=== PATIENT | female | born 2000 | race Caucasian/White ===

== ENCOUNTER 2020-06-19 18:18 | Inpatient (IN) | payer OTHER, MEDICAID, SELFPAY ==
[2020-06-19 18:23] VITALS: BP 129/85; PULSE 102; RESP 18; TEMP 36.7; O2SAT 96; BMI 42.0
[2020-06-19 19:42] LABS: MANUAL DIFF FLAG NO
[2020-06-19 19:43] LABS: Basophils Percent Auto 0.2 % (0-2); Eosinophils Absolute Auto 0.1 X10*3/uL (0.0-0.4); Eosinophils Percent Auto 0.9 % (0-4); Hematocrit 37.7 % (37-47); Hemoglobin 12.4 g/dl (12.0-16.0); Imm Gran Abs Auto 0.04 X10*3/uL (0.00-0.03); Imm Gran Pct Auto 0.3 % (0.0-0.4); Lymphocytes Absolute Auto 2.7 X10*3/uL (1.2-4.9); Lymphocytes Percent Auto 22.5 % (20-40); Mean Corpuscular HGB Conc 32.9 g/dl (31.0-35.0); Mean Corpuscular Hemoglobin 28.1 pg (27.0-33.0); Mean Corpuscular Volume 85.5 fL (80-98); Mean Platelet Volume 10.2 fL (9.4-12.3); Monocytes Absolute Auto 0.8 X10*3/uL (0.1-1.2); Monocytes Percent Auto 6.5 % (2-11); Neutrophils Absolute Auto 8.2 X10*3/uL (2.0-8.3); Neutrophils Percent Auto 69.6 % (45-73); Platelet Count 226 X10*3/uL (160-400); Red Blood Count 4.41 X10*6/uL (4.20-5.50); Red Cell Distribution Width 13.3 % (11.0-16.0); White Blood Count 11.8 X10*3/uL (4.8-10.8)
[2020-06-19 19:58] LABS: COVID-19 Test Negative (Negative)
[2020-06-19 20:06] LABS: Glucose Urine UA NEG (NEG); Leukocyte Esterase Urine 2+ (NEG); Nitrite Urine NEG (NEG); Specific Gravity - Urine 1.025 (1.005-1.025); UACC Culture Trigger YES; Urine Blood NEG (NEG); Urine Ketones NEG (NEG); Urine Protein NEG (NEG-TRACE)
[2020-06-19 20:08] LABS: Appearance Urine HAZY; Color Urine YELLOW; UPreg QC Valid YES; Urine Pregnancy NEGATIVE (NEGATIVE)
[2020-06-19 20:13] LABS: Ethanol < 10 mg/dL
[2020-06-19 20:15] LABS: Bacteria Urine 1+ /LPF; RBC Urine 0 /HPF (0); Squamous Epithelial Cell Urine 1+ /LPF; UACC CULT YES; WBC Urine 30-49 /HPF (0-4)
[2020-06-19 20:17] LABS: Alanine Aminotransferase 19 U/L (0-31); Albumin Level 4.2 g/dL (3.5-5.0); Alkaline Phosphatase 107 U/L (39-117); Anion Gap 15 (12-20); Aspartate Amino Transferase 10 U/L (5-31); Bilirubin Total 0.6 mg/dL (0.0-1.0); Blood Urea Nitrogen 8 mg/dL (9-16); Calcium 8.9 mg/dL (8.4-10.2); Carbon Dioxide 20 mmol/L (22-29); Chloride 111 mmol/L (96-108); Creatinine Clr Calc Pharmacy 144.9; Estimated Glomerular Filt Rate > 60; Glucose Random 119 mg/dL (60-115); Potassium 3.9 mmol/L (3.3-5.1); Sodium 142 mmol/L (135-145); Total Protein 6.8 g/dL (6.5-8.0)
[2020-06-19 20:26] LABS: Amphetamine Screen Urine Not Detected (Not Detect); Barbiturates, Urine Not Detected (Not Detect); Benzodiazepines Screen Urine Not Detected (Not Detect); Cannabinoid Screen Urine Not Detected (Not Detect); Cocaine Screen Urine Not Detected (Not Detect); Opiate Screen Urine Not Detected (Not Detect); Phencyclidine Screen Urine Not Detected (Not Detect)
--- NOTE | 2020-06-19 20:50 | ED.PSYCH ---
HPI - Psych General Chief Complaint: Psychiatric Symptoms Stated Complaint: Crisis Time Seen by Provider: 06/19/20 19:25 Source: family Limitations: no limitations History of Present Illness HPI Narrative: 19-year-old female who presents ambulatory with her mother she is part of the service not program lives in [facility] home she has a history of RADHA, mixed bipolar and reported some intellectual disability she has been reporting today feeling thoughts of SI and HI she was visiting with the mother and reported these symptoms prior to returning to the detention and mother brought her here. Additionally also reports slight burning like sensation with urination history of UTI. No abdominal pain, nausea, vomiting or diarrhea. Not sexually active. No fever. No vaginal discharge or bleeding. Patient reports she has been in this detention for 5 months or so and she does not like anyone there. MD complaint: suicidal ideation Onset (ago): day(s) Duration: constant History of same: Yes Relieving factors: none Exacerbating factors: none Associated symptoms: denies other symptoms Treatments prior to arrival: none Related Data Allergies Allergy/AdvReac Type Severity Reaction Status Date / Time shellfish derived AdvReac Hives Verified 06/19/20 19:12 Review of Systems Review of Systems: Constitutional: No Weight loss, No Fever, No Chills, No Night Sweats, No Fatigue, No Malaise ENT/Mouth: No Hearing loss, No Ear Pain, No Nasal Congestion, No Sinus Pain, No Hoarseness, No sore throat, No Rhinorrhea, No Swallowing Difficulty Eyes: No Eye Pain, No Swelling, No Redness, No Foreign Body, No Discharge, No Vision Changes Cardiovascular: No Chest Pain, No SOB, No Dyspnea on Exertion, No Orthopnea, No Edema, No Palpitations Respiratory: No Cough, No Sputum, No Wheezing, No Smoke Exposure, No Dyspnea Gastrointestinal: No Nausea, No Vomiting, No Diarrhea, No Constipation, No abdominal Pain, No Hematochezia, No Melena Genitourinary: no irregular bleeding, + Dysuria, No Urinary Frequency, No Hematuria, No Urinary Incontinence, No Urgency, No Flank Pain, No Urinary Flow Changes, No Hesitancy Musculoskeletal: No joint pain, No Myalgias, No Joint Swelling Skin: No Skin Lesions, No rash Neuro: No Weakness, No Numbness, No Paresthesias, No Loss of Consciousness, No Dizziness, No Headache Psych: As noted per HPI Heme/Lymph: No Bruising, No Bleeding,No Lymphadenopathy Endocrine: No Polyuria, No Polydipsia, No Temperature Intolerance Yes all other systems are reviewed and are negative [facility] Past Medical History Medical History Intellectual disability Mixed bipolar disorder Social History Social History Advance Directives: No Advance Directives Information Provided: Yes Physical Exam Vital Signs: Vital Signs: Last Vital Signs Temp 98.0 F 06/19/20 18:23 Pulse 102 H 06/19/20 18:23 Resp 18 06/19/20 18:23 BP 129/85 06/19/20 18:23 Pulse Ox 96 06/19/20 18:23 Body Mass Index 42.0 Reviewed Const: General: cooperative and anxious; No acute distress or intoxicated appearing Nutritional Appearance: average body habitus Orientation/consciousness: patient oriented x3 HENMT: Head: Yes normal to inspection Ears: hearing grossly normal bilaterally Eyes: General: appearance normal, both eyes and all related structures Visual [place]: normal visual mancilla by confrontation Neck: Neck: Yes normal visual inspection, No positive Brudzinski's sign, No positive Kernig's sign and No tender Thyroid: Thyroid normal Chest: Chest palpation & inspection: normal inspection of the chest Resp: Effort & Inspection: normal respiratory effort Auscultation: clear to auscultation bilaterally Cardio: Jugular venous distension: no JVD Rhythm: regular rhythm Heart sounds: S1 normal heart sound present and S2 normal heart sound present GI: Inspection: Yes normal to inspection Percussion: Yes normal to percussion Auscultation: normal bowel sounds : General: Yes no CVA tenderness Back/Spine/Pelvis: Back: no CVA tenderness Skin: General skin exam: no rashes or lesions noted Neuro: General: patient oriented x3 Extrem: General: Yes normal to inspection Course Reevaluation(s) Reevaluation #1: 1956 Per mom similar presentation in the past has been to [facility] as well as [facility] and [facility]. Given her slight dysuria will go ahead and check urine, basic labs and obtain psychiatric evaluation. Patient is familiar with service that and crisis team. Reevaluation #2: 2104 Urine with 2+ leukocyte esterase , urine WBC 30-49, 1+ squamous, 1+ bacteria. Will culture urine and start patient on Macrobid 100 mg b.i.d.. She is medically clear at this time for psychiatric evaluation. Patient placed on physician observation pending psychiatric evaluation and input/disposition. Consultations Consultation #1: Care team Consultation #2: Crisis evaluation MDM - Psych Lab Data Result diagrams: 06/19/20 19:34 06/19/20 19:34 Labs: Lab Results 06/19/20 06/19/20 06/19/20 Range/Units 19:26 19:34 19:34 WBC 11.8 H (4.8-10.8) X10*3/uL RBC 4.41 (4.20-5.50) X10*6/uL Hgb 12.4 (12.0-16.0) g/dl Hct 37.7 (37-47) % MCV 85.5 (80-98) fL MCH 28.1 (27.0-33.0) pg MCHC 32.9 (31.0-35.0) g/dl RDW 13.3 (11.0-16.0) % Plt Count 226 (160-400) X10*3/uL MPV 10.2 (9.4-12.3) fL Immature Gran % (Auto) 0.3 (0.0-0.4) % Neut % (Auto) 69.6 (45-73) % Lymph % (Auto) 22.5 (20-40) % [place] % (Auto) 6.5 (2-11) % Eos % (Auto) 0.9 (0-4) % Baso % (Auto) 0.2 (0-2) % Lymph # (Auto) 2.7 (1.2-4.9) X10*3/uL [place] # (Auto) 0.8 (0.1-1.2) X10*3/uL Eos # (Auto) 0.1 (0.0-0.4) X10*3/uL Baso # (Auto) 0.0 (0.0-0.2) X10*3/uL Abs Immat Gran (auto) 0.04 H (0.00-0.03) X10*3/uL Absolute Neuts (auto) 8.2 (2.0-8.3) X10*3/uL Absolute Nucleated RBC 0.000 (0.0-0.012) X10*3/uL Nucleated RBC % (auto) 0.0 (0.0-0.2) /100WBC Sodium 142 (135-145) mmol/L Potassium 3.9 (3.3-5.1) mmol/L Chloride 111 H (96-108) mmol/L Carbon Dioxide 20 L (22-29) mmol/L Anion Gap 15 (12-20) BUN 8 L (9-16) mg/dL Creatinine 0.83 (0.5-1.4) mg/dL Estim Creat Clear Calc 144.9 Estimated GFR > 60 Random Glucose 119 H (60-115) mg/dL Calcium 8.9 (8.4-10.2) mg/dL Total Bilirubin 0.6 (0.0-1.0) mg/dL AST 10 (5-31) U/L ALT 19 (0-31) U/L Alkaline Phosphatase 107 (39-117) U/L Total Protein 6.8 (6.5-8.0) g/dL Albumin 4.2 (3.5-5.0) g/dL Urine Color Urine Appearance Urine pH (5.0-8.0) Ur Specific [place] (1.005-1.025) Urine Protein (NEG-TRACE) MG/DL Urine Glucose (UA) (NEG) MG/DL Urine Ketones (NEG) MG/DL Urine Blood (NEG) Urine Nitrite (NEG) Ur Leukocyte Esterase (NEG) Urine RBC (0) /HPF Urine WBC (0-4) /HPF Ur Squamous Epith Cells /LPF Urine Bacteria /LPF Urine Test (NEGATIVE) Urine Opiates Screen (Not Detect) Ur Barbiturates Screen (Not Detect) Ur Phencyclidine Scrn (Not Detect) Ur Amphetamines Screen (Not Detect) U Benzodiazepines Scrn (Not Detect) Urine Cocaine Screen (Not Detect) U Marijuana (THC) Screen (Not Detect) Ethyl Alcohol mg/dL COVID-19 (FRANCY) Negative (Negative) COVID-19 Clin Com See Note 06/19/20 06/19/20 06/19/20 Range/Units 19:34 19:49 19:49 WBC (4.8-10.8) X10*3/uL RBC (4.20-5.50) X10*6/uL Hgb (12.0-16.0) g/dl Hct (37-47) % MCV (80-98) fL MCH (27.0-33.0) pg MCHC (31.0-35.0) g/dl RDW (11.0-16.0) % Plt Count (160-400) X10*3/uL MPV (9.4-12.3) fL Immature Gran % (Auto) (0.0-0.4) % Neut % (Auto) (45-73) % Lymph % (Auto) (20-40) % [place] % (Auto) (2-11) % Eos % (Auto) (0-4) % Baso % (Auto) (0-2) % Lymph # (Auto) (1.2-4.9) X10*3/uL [place] # (Auto) (0.1-1.2) X10*3/uL Eos # (Auto) (0.0-0.4) X10*3/uL Baso # (Auto) (0.0-0.2) X10*3/uL Abs Immat Gran (auto) (0.00-0.03) X10*3/uL Absolute Neuts (auto) (2.0-8.3) X10*3/uL Absolute Nucleated RBC (0.0-0.012) X10*3/uL Nucleated RBC % (auto) (0.0-0.2) /100WBC Sodium (135-145) mmol/L Potassium (3.3-5.1) mmol/L Chloride (96-108) mmol/L Carbon Dioxide (22-29) mmol/L Anion Gap (12-20) BUN (9-16) mg/dL Creatinine (0.5-1.4) mg/dL Estim Creat Clear Calc Estimated GFR Random Glucose (60-115) mg/dL Calcium (8.4-10.2) mg/dL Total Bilirubin (0.0-1.0) mg/dL AST (5-31) U/L ALT (0-31) U/L Alkaline Phosphatase (39-117) U/L Total Protein (6.5-8.0) g/dL Albumin (3.5-5.0) g/dL Urine Color YELLOW Urine Appearance HAZY Urine pH 6.0 (5.0-8.0) Ur Specific [place] 1.025 (1.005-1.025) Urine Protein NEG (NEG-TRACE) MG/DL Urine Glucose (UA) NEG (NEG) MG/DL Urine Ketones NEG (NEG) MG/DL Urine Blood NEG (NEG) Urine Nitrite NEG (NEG) Ur Leukocyte Esterase 2+ H (NEG) Urine RBC 0 (0) /HPF Urine WBC 30-49 H (0-4) /HPF Ur Squamous Epith Cells 1+ /LPF Urine Bacteria 1+ /LPF Urine Test NEGATIVE (NEGATIVE) Urine Opiates Screen (Not Detect) Ur Barbiturates Screen (Not Detect) Ur Phencyclidine Scrn (Not Detect) Ur Amphetamines Screen (Not Detect) U Benzodiazepines Scrn (Not Detect) Urine Cocaine Screen (Not Detect) U Marijuana (THC) Screen (Not Detect) Ethyl Alcohol < 10 mg/dL COVID-19 (FRANCY) (Negative) COVID-19 Clin Com 06/19/20 Range/Units 19:49 WBC (4.8-10.8) X10*3/uL RBC (4.20-5.50) X10*6/uL Hgb (12.0-16.0) g/dl Hct (37-47) % MCV (80-98) fL MCH (27.0-33.0) pg MCHC (31.0-35.0) g/dl RDW (11.0-16.0) % Plt Count (160-400) X10*3/uL MPV (9.4-12.3) fL Immature Gran % (Auto) (0.0-0.4) % Neut % (Auto) (45-73) % Lymph % (Auto) (20-40) % [place] % (Auto) (2-11) % Eos % (Auto) (0-4) % Baso % (Auto) (0-2) % Lymph # (Auto) (1.2-4.9) X10*3/uL [place] # (Auto) (0.1-1.2) X10*3/uL Eos # (Auto) (0.0-0.4) X10*3/uL Baso # (Auto) (0.0-0.2) X10*3/uL Abs Immat Gran (auto) (0.00-0.03) X10*3/uL Absolute Neuts (auto) (2.0-8.3) X10*3/uL Absolute Nucleated RBC (0.0-0.012) X10*3/uL Nucleated RBC % (auto) (0.0-0.2) /100WBC Sodium (135-145) mmol/L Potassium (3.3-5.1) mmol/L Chloride (96-108) mmol/L Carbon Dioxide (22-29) mmol/L Anion Gap (12-20) BUN (9-16) mg/dL Creatinine (0.5-1.4) mg/dL Estim Creat Clear Calc Estimated GFR Random Glucose (60-115) mg/dL Calcium (8.4-10.2) mg/dL Total Bilirubin (0.0-1.0) mg/dL AST (5-31) U/L ALT (0-31) U/L Alkaline Phosphatase (39-117) U/L Total Protein (6.5-8.0) g/dL Albumin (3.5-5.0) g/dL Urine Color Urine Appearance Urine pH (5.0-8.0) Ur Specific [place] (1.005-1.025) Urine Protein (NEG-TRACE) MG/DL Urine Glucose (UA) (NEG) MG/DL Urine Ketones (NEG) MG/DL Urine Blood (NEG) Urine Nitrite (NEG) Ur Leukocyte Esterase (NEG) Urine RBC (0) /HPF Urine WBC (0-4) /HPF Ur Squamous Epith Cells /LPF Urine Bacteria /LPF Urine Test (NEGATIVE) Urine Opiates Screen Not Detected (Not Detect) Ur Barbiturates Screen Not Detected (Not Detect) Ur Phencyclidine Scrn Not Detected (Not Detect) Ur Amphetamines Screen Not Detected (Not Detect) U Benzodiazepines Scrn Not Detected (Not Detect) Urine Cocaine Screen Not Detected (Not Detect) U Marijuana (THC) Screen Not Detected (Not Detect) Ethyl Alcohol mg/dL COVID-19 (FRANCY) (Negative) COVID-19 Clin Com Discharge Plan Discharge Clinical Impression: Suicidal ideation, UTI (urinary tract infection)
--- NOTE | 2020-06-19 21:01 | PC.NURSE ---
[facility] faxed/called/spoke with Khalif, confirmed receipt of referral. [facility] notified us that patient's mother already called them earlier about the situation. Per [facility] no clinician available for [facility] patient will be seen in the morning. Received call ([phone])from [facility] direction service net reported that patient was referred to them in late April and patient has been doing fine since. Patient has medication review meeting end of June. Patient behavior started changing when patient started Saturday visit with her mother. Awaiting medication list from the program. Per provider patient has UTI will start her antibiotic waiting for the order. Patient is in her calm and quiet, no distress reported, will continue to monitor.
[2020-06-19] MEDS: Nitrofurantoin Monohyd/M-Cryst 100 MG CAPSULE PO (21:15)
[2020-06-20 01:00] VITALS: BP 135/85; PULSE 92; RESP 16; TEMP 36.6; O2SAT 100
[2020-06-20] MEDS: Omeprazole 20 MG CAPSULE.DR PO ×2 (06:37→16:25)
--- NOTE | 2020-06-20 06:55 | PC.NURSE ---
Report recieved. PT currently with [facility], in no apparent distress.
[2020-06-20 09:28] VITALS: BP 111/77; PULSE 88; RESP 14; TEMP 36.4; O2SAT 98
[2020-06-20 09:45] VITALS: BP 111/77; PULSE 88
[2020-06-20] MEDS: LORazepam 0.5 MG TABLET PO ×3 (09:45→20:48)
[2020-06-20] MEDS: Benztropine Mesylate 1 MG TABLET PO ×2 (09:45→20:47)
[2020-06-20] MEDS: hydrOXYzine HCL 50 MG TABLET PO ×2 (09:45→20:46)
[2020-06-20] MEDS: Propranolol HCL 20 MG TABLET PO ×2 (09:45→20:49)
[2020-06-20] MEDS: Nitrofurantoin Monohyd/M-Cryst 100 MG CAPSULE PO ×2 (09:45→20:49)
[2020-06-20] MEDS: lamoTRIgine 100 MG TABLET PO (09:45)
[2020-06-20] MEDS: medroxyPROGESTERone Acetate 5 MG TABLET 10 MG PO (09:46)
[2020-06-20 16:10] VITALS: BP 103/66; PULSE 108; RESP 16; TEMP 37; O2SAT 97
[2020-06-20] MEDS: Lurasidone HCl 80 MG TABLET PO (16:25)
--- NOTE | 2020-06-20 19:08 | PC.NURSE ---
Report received. PT is resting in bed. Calm and cooperative. PT is inpatient bed search.
[2020-06-20 20:49] VITALS: BP 130/81; PULSE 99
[2020-06-20] MEDS: traZODone HCL 50 MG TABLET PO (20:54)
[2020-06-21] VITALS (7 sets, daily range): BP systolic 105–127; BP diastolic 56–66; PULSE 69–86; RESP 16–18; TEMP 35.6–36.6; O2SAT 97–99
[2020-06-21] MEDS: Omeprazole 20 MG CAPSULE.DR PO ×2 (06:37→17:54)
--- NOTE | 2020-06-21 07:08 | PC.NURSE ---
Report received. PT currently eating breakfast, reporting some anxiety. PT pleasant in conversation. PT is inpatient bedsearch.
[2020-06-21] MEDS: Propranolol HCL 20 MG TABLET PO ×2 (09:44→20:39)
[2020-06-21] MEDS: Benztropine Mesylate 1 MG TABLET PO ×2 (09:44→20:38)
[2020-06-21] MEDS: lamoTRIgine 100 MG TABLET PO (09:44)
[2020-06-21] MEDS: Nitrofurantoin Monohyd/M-Cryst 100 MG CAPSULE PO ×2 (09:44→20:39)
[2020-06-21] MEDS: medroxyPROGESTERone Acetate 5 MG TABLET 10 MG PO (09:44)
[2020-06-21] MEDS: LORazepam 0.5 MG TABLET PO ×3 (09:44→20:39)
[2020-06-21] MEDS: hydrOXYzine HCL 50 MG TABLET PO (09:44)
--- NOTE | 2020-06-21 13:30 | MHC.CARE ---
Auth from Nat Flores for 5 days with auth number #[id number].
[2020-06-21] MEDS: Lurasidone HCl 80 MG TABLET PO (17:54)
[2020-06-21] MEDS: traZODone HCL 50 MG TABLET PO (20:40)
--- NOTE | 2020-06-22 00:33 | PC.ADMIT ---
Patient is a 19 year old single Upper Sorbian speaking female admitted as a CV admission to and placed on 5 minute safety checks. Patient was medically cleared in the [facility], evaluated by [facility] and deemed in need of ILOC secondary to recent agitation along with SI with a plan to tie a string around her neck or jump out of a car. She had also expressed HI towards the other residents at her residential [facility]. Patient arrived on at 1524. During the admission process patient did admit that she has AH of voices that tell her to hurt herself and that she has a hard time with her temper and becomes angered easily. She mentioned I'm Developmentally Delayed and I have trouble keeping my behavior under control . Patient did say she really wouldn't hurt anyone . The patient admitted she was homesick and enjoyed living with her parents. She was able to answer all of the questions appropriately and denied any current SI. At one point in the conversation, the patient mentioned the deaths of her grandparents and a pet Guinea pig in the last two years as stressful. She then looked at the wall with her eyes looking downward and said my pet Guinea pig is right over there. This functional tester typewriters asked if the one she saw was a current pet Guinea pig and she replied No, he's . Apparently the Guinea pig's name was 'Beau' and she said his presence is comforting to her. She said Sometimes when I am resting he will run up my leg and cuddle with me . Patient has had two previous psychiatric admissions at [facility]. A number of years ago she took an overdose of her medications but told her father and was admitted to inpatient psych. No other active suicidal gestures since that time. The provider was notified of her admission and orders were placed. Patient will be on 15 minute safety checks.
[2020-06-22 06:25] VITALS: BP 97/53; PULSE 70; RESP 16; TEMP 36.7; O2SAT 98
[2020-06-22 08:52] VITALS: BP 111/62; PULSE 71
[2020-06-22] MEDS: Omeprazole 20 MG CAPSULE.DR PO ×2 (08:52→16:45)
[2020-06-22] MEDS: medroxyPROGESTERone Acetate 5 MG TABLET 10 MG PO (08:52)
[2020-06-22] MEDS: Nitrofurantoin Monohyd/M-Cryst 100 MG CAPSULE PO ×2 (08:52→20:05)
[2020-06-22] MEDS: Propranolol HCL 20 MG TABLET PO ×2 (08:52→20:06)
[2020-06-22] MEDS: Benztropine Mesylate 1 MG TABLET PO ×2 (08:52→20:07)
[2020-06-22] MEDS: LORazepam 0.5 MG TABLET PO ×3 (08:52→20:05)
[2020-06-22] MEDS: lamoTRIgine 100 MG TABLET PO (08:52)
--- NOTE | 2020-06-22 14:25 | P.HPPS_ITS ---
HPI Chief Complaint: SI Sources of Information: patient interviewed, chart reviewed and crisis/core team assessment reviewed HPI Subjective Notes: Conditional Voluntary Narrative: Ms. Rocha is a 19 year-old woman with hx of developmental delay, schizoaffective disorder who was brought by mother on 06/20/2020 to [facility] ED after she went to visit pt at custodial where she recently resides and pt expressed VH/AH, SI with plan to hang herself and HI towards staff and peers at custodial. In ED utox is negative. On the unit, Ms. Rocha presents as tearful. She reports that since April she moved out of her parents house for the first time to custodial through [facility]. She reports she does not want to return to custodial stating they are not helpful but unable to provide more information as to what is difficult. After exploring further, pt notes that she misses her parents, that it has been a difficult transition to independent living, although she does agree that she needs to learn to be more independent as parents may not be there always for her. She reports hearing voices since Saturday during the visit with her mom. She states she can't tell what they are saying. She reports seeing her hand turning purple and this is scare. She is tearful when stating that she had thoughts of wanting to hand herself. She denies any thoughts of wanting to hurt herself but states I have moments of crying and wanting to hurt myself and others. She re ports sleeping and appetite are as usual. She reports she was told she has pseudobulbar affect, which may explain episodes of spontaneous crying and laughing incongruent from mood. Pt reports that when feeling frustrated having stuffed animals help. She also reports that she likes to be left alone s ometimes. She asks if there will be any medication changes as she wants medications every 20 minutes, is that possible? Past Psychiatric History: Inpatient: 03/31/2020: [facility]; 06/11/2017 [place]; 03/10/2018 [place] OP: Paul Esquivel [phone]; DDS: Tram Lemus [phone] Past medication trials: latuda, propanolol, ativan, hydroxyzine Suicide attempts: OD on sertraline in 2018 Violence: report of trying to shock mother once. Medical Evaluation Reviewed: Yes [facility] Medical History (Updated 06/22/20 @ 14:45 by Sushma Gamino) Intellectual disability Mixed bipolar disorder Family History: none Social History: lives in custodial since Apr 2020. Lived with both parents until then. Has sister 6 years older. Substance History: none Diagnostics Vital Signs (24Hr): Vital Signs - 24 hr 06/21/20 15:40 06/21/20 15:51 06/21/20 20:35 Temperature 96.7 F L 97 F 96.0 F L Pulse Rate 84 77 86 Respiratory Rate Blood Pressure 120/60 112/65 115/59 L Pulse Oximetry 97 06/21/20 20:39 06/22/20 06:25 06/22/20 08:52 Temperature 98.1 F Pulse Rate 84 70 71 Respiratory Rate 16 Blood Pressure 122/56 L 97/53 L 111/62 Pulse Oximetry 98 Body Mass Index 42.0 Labs Results: 06/19/20 19:34 06/19/20 19:34 Meds/Allergies Meds Home Medications Acetaminophen (Acetaminophen 325 Mg Tablet) 650 mg PO Q4H PRN PRN Reason: Pain, Mild (Pain Scale 1-3) Al Hydroxide/Mg Hydroxide (Magnesium Hydrox/Alum Hydrox 30 Ml Oral.Susp) 30 ml PO Q6H PRN PRN Reason: Heartburn/Nausea Benztropine Mesylate (Benztropine Mesylate 1 Mg Tablet) 1 mg PO BID [facility] Last Admin: 06/22/20 08:52 Dose: 1 mg Documented by: Ibuprofen (Ibuprofen 800 Mg Tablet) 800 mg PO Q6H PRN PRN Reason: Pain, Moderate (Pain Scale 4-6 Lamotrigine (Lamotrigine 100 Mg Tablet) 100 mg PO DAILY [facility] Last Admin: 06/22/20 08:52 Dose: 100 mg Documented by: Lorazepam (Lorazepam 0.5 Mg Tablet) 0.5 mg PO TID [facility] Last Admin: 06/22/20 08:52 Dose: 0.5 mg Documented by: Lurasidone HCl (Lurasidone Hcl 80 Mg Tablet) 80 mg PO DAILY@1700 [facility] Last Admin: 06/21/20 17:54 Dose: 80 mg Documented by: Magnesium Hydroxide (Milk Of Magnesia 30 Ml Oral.Susp) 30 ml PO DAILY PRN PRN Reason: Constipation Medroxyprogesterone Acetate (Medroxyprogesterone Acetate 5 Mg Tablet) 10 mg PO DAILY [facility] Last Admin: 06/22/20 08:52 Dose: 10 mg Documented by: Nitrofurantoin Macrocrystals (Nitrofurantoin Monohyd/M-Cryst 100 Mg Capsule) 100 mg PO BID [facility] Stop: 06/26/20 09:01 Last Admin: 06/22/20 08:52 Dose: 100 mg Documented by: Omeprazole (Omeprazole 20 Mg Capsule.) 20 mg PO BID@0630,1630 [facility] Last Admin: 06/22/20 08:52 Dose: 20 mg Documented by: Propranolol HCl (Propranolol Hcl 20 Mg Tablet) 20 mg PO BID [facility]; Protocol Last Admin: 06/22/20 08:52 Dose: 20 mg Documented by: Trazodone HCl (Trazodone Hcl 50 Mg Tablet) 50 mg PO BEDTIME [facility] Last Admin: 06/21/20 20:40 Dose: 50 mg Documented by: Trazodone HCl (Trazodone Hcl 50 Mg Tablet) 50 mg PO BEDTIME PRN PRN Reason: Insomnia Allergies Allergies Allergy/AdvReac Type Severity Reaction Status Date / Time shellfish derived AdvReac Hives Verified 06/19/20 19:12 Mental Status Exam Mental Status Exam Narrative: Appearance: MO, casually groomed, fair hygiene, in NAD Behavior: calm, cooperative Psychomotor: no agitation or retardation noted, bilat resting tremors Speech: clear, normal rate/rhythm/volume, spontaneous TP: some loose associations noted, but mostly linear TC: no signs of psychosis, not liking custodial, missing parents Mood: depressed Affect:brightens at times, tearful too SI:passive HI:denies AH/VH:mumbles of voices Delusions:none Insight/judgment:poor x 2. Memory/cog: alert, underlying cognitive impairments. Assessment & Plan Assessment & Plan (1) Schizoaffective disorder, bipolar type: Status: Acute Code(s): F25.0 - Schizoaffective disorder, bipolar type Assessment and Plan: continue current medications obtain collateral information (2) Intermittent explosive disorder: Status: Acute Code(s): F63.81 - Intermittent explosive disorder Assessment and Plan: continue current medications obtain collateral information (3) Intellectual disability: Status: Acute Code(s): F79 - Unspecified intellectual disabilities (4) UTI (urinary tract infection): Status: Acute Code(s): N39.0 - Urinary tract infection, site not specified Assessment and Plan: continue macrobid. Reason for continued inpatient stay Substantial Risk for: harm to self and harm to others
[2020-06-22] MEDS: Lurasidone HCl 80 MG TABLET PO (16:45)
[2020-06-22 19:55] VITALS: BP 119/56; PULSE 82; TEMP 36.6
[2020-06-22 20:06] VITALS: BP 119/56; PULSE 82
[2020-06-22] MEDS: traZODone HCL 50 MG TABLET PO (20:06)
[2020-06-23 06:00] VITALS: BP 136/78; PULSE 75; RESP 16; TEMP 36.9; O2SAT 98
[2020-06-23 09:42] VITALS: BP 123/70; PULSE 80
[2020-06-23] MEDS: Propranolol HCL 20 MG TABLET PO ×2 (09:42→20:37)
[2020-06-23] MEDS: medroxyPROGESTERone Acetate 5 MG TABLET 10 MG PO (09:42)
[2020-06-23] MEDS: Omeprazole 20 MG CAPSULE.DR PO ×2 (09:42→17:18)
[2020-06-23] MEDS: lamoTRIgine 100 MG TABLET PO (09:42)
[2020-06-23] MEDS: Benztropine Mesylate 1 MG TABLET PO ×2 (09:42→20:37)
[2020-06-23] MEDS: LORazepam 0.5 MG TABLET PO ×3 (09:42→20:37)
[2020-06-23] MEDS: Nitrofurantoin Monohyd/M-Cryst 100 MG CAPSULE PO ×2 (09:42→20:37)
[2020-06-23 10:56] VITALS: BMI 40.9
--- NOTE | 2020-06-23 11:53 | HO.PSYCHPN ---
Subjective Subjective Date of Service: 06/24/20 Reason For Visit: SI Subjective Notes: Conditional Voluntary Interim History: Pt reports that she has ups and downs. Pt reports sleeping well. She initially stated that she does not want to go back to care home stating that they wake me up too early. However, she also reports she is aware that going back home is not an option and current care home has a lot of support. She states I know they can help me 24 hours, 7 days, my parents can't. Validated pt's feelings in that it is a difficult transition as this is the first time she is not with her parents. She denies SI/HI. She is taking medications as prescribed. No behavioral concerns. Pt attending assigned groups. Medication Compliance: Yes Side effects from medications: No Attending Groups: Yes Review of Systems Review of Systems Constitutional: No Weight loss, No Fever, No Chills, No Night Sweats, No Fatigue, No Malaise ENT/Mouth: No Hearing loss, No Ear Pain, No Nasal Congestion, No Sinus Pain, No Hoarseness, No sore throat, No Rhinorrhea, No Swallowing Difficulty Eyes: No Eye Pain, No Swelling, No Redness, No Foreign Body, No Discharge, No Vision Changes Cardiovascular: No Chest Pain, No SOB, No Dyspnea on Exertion, No Orthopnea, No Edema, No Palpitations Respiratory: No Cough, No Sputum, No Wheezing, No Smoke Exposure, No Dyspnea Gastrointestinal: No Nausea, No Vomiting, No Diarrhea, No Constipation, No abdominal Pain, No Hematochezia, No Melena Genitourinary: no irregular bleeding, + Dysuria, No Urinary Frequency, No Hematuria, No Urinary Incontinence, No Urgency, No Flank Pain, No Urinary Flow Changes, No Hesitancy Musculoskeletal: No joint pain, No Myalgias, No Joint Swelling Skin: No Skin Lesions, No rash Neuro: No Weakness, No Numbness, No Paresthesias, No Loss of Consciousness, No Dizziness, No Headache Psych: As noted per HPI Heme/Lymph: No Bruising, No Bleeding,No Lymphadenopathy Endocrine: No Polyuria, No Polydipsia, No Temperature Intolerance Yes all other systems are reviewed and are negative Mental Status Exam Mental Status Exam Narrative: Appearance: MO, casually groomed, fair hygiene, in NAD Behavior: calm, cooperative Psychomotor: no agitation or retardation noted, bilat resting tremors Speech: clear, normal rate/rhythm/volume, spontaneous TP: some loose associations noted, but mostly linear TC: no signs of psychosis, not liking care home, missing parents Mood: better Affect:congruent, SI:passive HI:denies AH/VH:denies Delusions:none Insight/judgment:poor x 2. Memory/cog: alert, underlying cognitive impairments. Diagnostics Vital Signs (24Hr): Vital Signs - 24 hr 06/23/20 18:00 06/23/20 20:37 06/24/20 06:00 Temperature 97.9 F 98.3 F Pulse Rate 78 79 77 Respiratory Rate 18 16 Blood Pressure 125/73 142/79 H 113/58 L Pulse Oximetry 99 96 06/24/20 09:32 Temperature Pulse Rate 75 Respiratory Rate Blood Pressure 120/64 Pulse Oximetry Body Mass Index 40.9 Labs Results: 06/19/20 19:34 06/19/20 19:34 Medications Medications Current Medications Generic Name Dose Route Start Last Admin Trade Name Freq PRN Reason Stop Dose Admin Acetaminophen 650 mg 06/19/20 23:56 Acetaminophen 325 Mg Tablet PO Q4H PRN Pain, Mild (Pain Scale 1-3) Al Hydroxide/Mg Hydroxide 30 ml 06/21/20 14:54 Magnesium Hydrox/Alum Hydrox 30 Ml Oral.Susp PO Q6H PRN Heartburn/Nausea Benztropine Mesylate 1 mg 06/20/20 09:00 06/24/20 09:31 Benztropine Mesylate 1 Mg Tablet PO 1 mg BID STANLEY Administration Ibuprofen 800 mg 06/19/20 23:56 Ibuprofen 800 Mg Tablet PO Q6H PRN Pain, Moderate (Pain Scale 4-6 Lamotrigine 100 mg 06/20/20 09:00 06/24/20 09:31 Lamotrigine 100 Mg Tablet PO 100 mg DAILY STANLEY Administration Lorazepam 0.5 mg 06/20/20 09:00 06/24/20 09:31 Lorazepam 0.5 Mg Tablet PO 0.5 mg TID STANLEY Administration Lurasidone HCl 80 mg 06/20/20 17:00 06/23/20 17:18 Lurasidone Hcl 80 Mg Tablet PO 80 mg DAILY@1700 STANLEY Administration Magnesium Hydroxide 30 ml 06/21/20 14:54 Milk Of Magnesia 30 Ml Oral.Susp PO DAILY PRN Constipation Medroxyprogesterone Acetate 10 mg 06/20/20 09:00 06/24/20 09:31 Medroxyprogesterone Acetate 5 Mg Tablet PO 10 mg DAILY STANLEY Administration Nitrofurantoin Macrocrystals 100 mg 06/19/20 21:15 06/24/20 09:31 Nitrofurantoin Monohyd/M-Cryst 100 Mg Capsule PO 06/26/20 09:01 100 mg BID STANLEY Administration Omeprazole 20 mg 06/20/20 06:30 06/24/20 06:40 Omeprazole 20 Mg Capsule. PO 20 mg BID@0630,1630 STANLEY Administration Propranolol HCl 20 mg 06/20/20 09:00 06/24/20 09:32 Propranolol Hcl 20 Mg Tablet PO 20 mg BID STANLEY Administration Protocol Trazodone HCl 50 mg 06/20/20 21:00 06/23/20 20:37 Trazodone Hcl 50 Mg Tablet PO 50 mg BEDTIME STANLEY Administration Trazodone HCl 50 mg 06/21/20 14:54 Trazodone Hcl 50 Mg Tablet PO BEDTIME PRN Insomnia Allergies Allergies Allergy/AdvReac Type Severity Reaction Status Date / Time shellfish derived AdvReac Hives Verified 06/19/20 19:12 Assessment & Plan Assessment & Plan (1) Schizoaffective disorder, bipolar type: Status: Acute Code(s): F25.0 - Schizoaffective disorder, bipolar type Assessment and Plan: continue current medications- will d/c cogentin as although pt has essetial resting tremor, does not seen to be EPS from Latuda. Pt had OP consult with neurology and is already on propanolol. obtain collateral information (2) Intermittent explosive disorder: Status: Acute Code(s): F63.81 - Intermittent explosive disorder Assessment and Plan: continue current medications obtain collateral information (3) Intellectual disability: Status: Acute Code(s): F79 - Unspecified intellectual disabilities (4) UTI (urinary tract infection): Status: Acute Code(s): N39.0 - Urinary tract infection, site not specified Assessment and Plan: continue macrobid. Greater than 50% of the session was spent on counseling and/or coordination of care Reason for contiued inpatient stay Substantial Risk for: harm to self
[2020-06-23] MEDS: Lurasidone HCl 80 MG TABLET PO (17:18)
[2020-06-23 18:00] VITALS: BP 125/73; PULSE 78; RESP 18; TEMP 36.6; O2SAT 99
[2020-06-23 20:37] VITALS: BP 142/79; PULSE 79
[2020-06-23] MEDS: traZODone HCL 50 MG TABLET PO (20:37)
[2020-06-24 06:00] VITALS: BP 113/58; PULSE 77; RESP 16; TEMP 36.8; O2SAT 96
[2020-06-24] MEDS: Omeprazole 20 MG CAPSULE.DR PO ×2 (06:40→16:01)
[2020-06-24] MEDS: lamoTRIgine 100 MG TABLET PO (09:31)
[2020-06-24] MEDS: LORazepam 0.5 MG TABLET PO ×3 (09:31→20:20)
[2020-06-24] MEDS: medroxyPROGESTERone Acetate 5 MG TABLET 10 MG PO (09:31)
[2020-06-24] MEDS: Benztropine Mesylate 1 MG TABLET PO (09:31)
[2020-06-24] MEDS: Nitrofurantoin Monohyd/M-Cryst 100 MG CAPSULE PO ×2 (09:31→20:19)
[2020-06-24 09:32] VITALS: BP 120/64; PULSE 75
[2020-06-24] MEDS: Propranolol HCL 20 MG TABLET PO ×2 (09:32→20:20)
--- NOTE | 2020-06-24 12:00 | P.PNPSI_ITS ---
Subjective Subjective Date of Service: 06/24/20 Reason For Visit: SI Interim History: Pt reports that she is doing better in that she is okay with returning home. Pt reports sleeping well. She reports she has some difficult moments but denies any suicidal or homicidal ideation. She has been visible in the unit. No behavioral concerns. Pt attending assigned groups. Review of Systems Review of Systems Constitutional: No Weight loss, No Fever, No Chills, No Night Sweats, No Fatigue, No Malaise ENT/Mouth: No Hearing loss, No Ear Pain, No Nasal Congestion, No Sinus Pain, No Hoarseness, No sore throat, No Rhinorrhea, No Swallowing Difficulty Eyes: No Eye Pain, No Swelling, No Redness, No Foreign Body, No Discharge, No Vision Changes Cardiovascular: No Chest Pain, No SOB, No Dyspnea on Exertion, No Orthopnea, No Edema, No Palpitations Respiratory: No Cough, No Sputum, No Wheezing, No Smoke Exposure, No Dyspnea Gastrointestinal: No Nausea, No Vomiting, No Diarrhea, No Constipation, No abdominal Pain, No Hematochezia, No Melena Genitourinary: no irregular bleeding, + Dysuria, No Urinary Frequency, No Hematuria, No Urinary Incontinence, No Urgency, No Flank Pain, No Urinary Flow Changes, No Hesitancy Musculoskeletal: No joint pain, No Myalgias, No Joint Swelling Skin: No Skin Lesions, No rash Neuro: No Weakness, No Numbness, No Paresthesias, No Loss of Consciousness, No Dizziness, No Headache Psych: As noted per HPI Heme/Lymph: No Bruising, No Bleeding,No Lymphadenopathy Endocrine: No Polyuria, No Polydipsia, No Temperature Intolerance Yes all other systems are reviewed and are negative Mental Status Exam Mental Status Exam Narrative: Appearance: MO, casually groomed, fair hygiene, in NAD Behavior: calm, cooperative Psychomotor: no agitation or retardation noted, bilat resting tremors Speech: clear, normal rate/rhythm/volume, spontaneous TP: some loose associations noted, but mostly linear TC: no signs of psychosis, not liking nursing home, missing parents Mood: better Affect:congruent, SI:passive HI:denies AH/VH:denies Delusions:none Insight/judgment:poor x 2. Memory/cog: alert, underlying cognitive impairments. Diagnostics Vital Signs (24Hr): Vital Signs - 24 hr 06/23/20 18:00 06/23/20 20:37 06/24/20 06:00 Temperature 97.9 F 98.3 F Pulse Rate 78 79 77 Respiratory Rate 18 16 Blood Pressure 125/73 142/79 H 113/58 L Pulse Oximetry 99 96 06/24/20 09:32 Temperature Pulse Rate 75 Respiratory Rate Blood Pressure 120/64 Pulse Oximetry Body Mass Index 40.9 Labs Results: 06/19/20 19:34 06/19/20 19:34 Medications Medications Current Medications Generic Name Dose Route Start Last Admin Trade Name Freq PRN Reason Stop Dose Admin Acetaminophen 650 mg 06/19/20 23:56 Acetaminophen 325 Mg Tablet PO Q4H PRN Pain, Mild (Pain Scale 1-3) Al Hydroxide/Mg Hydroxide 30 ml 06/21/20 14:54 Magnesium Hydrox/Alum Hydrox 30 Ml Oral.Susp PO Q6H PRN Heartburn/Nausea Benztropine Mesylate 1 mg 06/20/20 09:00 06/24/20 09:31 Benztropine Mesylate 1 Mg Tablet PO 1 mg BID STANLEY Administration Ibuprofen 800 mg 06/19/20 23:56 Ibuprofen 800 Mg Tablet PO Q6H PRN Pain, Moderate (Pain Scale 4-6 Lamotrigine 100 mg 06/20/20 09:00 06/24/20 09:31 Lamotrigine 100 Mg Tablet PO 100 mg DAILY ST[facility]LEY Administration Lorazepam 0.5 mg 06/20/20 09:00 06/24/20 09:31 Lorazepam 0.5 Mg Tablet PO 0.5 mg TID ST[facility]LEY Administration Lurasidone HCl 80 mg 06/20/20 17:00 06/23/20 17:18 Lurasidone Hcl 80 Mg Tablet PO 80 mg DAILY@1700 ST[facility]LEY Administration Magnesium Hydroxide 30 ml 06/21/20 14:54 Milk Of Magnesia 30 Ml Oral.Susp PO DAILY PRN Constipation Medroxyprogesterone Acetate 10 mg 06/20/20 09:00 06/24/20 09:31 Medroxyprogesterone Acetate 5 Mg Tablet PO 10 mg DAILY ST[facility]LEY Administration Nitrofurantoin Macrocrystals 100 mg 06/19/20 21:15 06/24/20 09:31 Nitrofurantoin Monohyd/M-Cryst 100 Mg Capsule PO 06/26/20 09:01 100 mg BID STANLEY Administration Omeprazole 20 mg 06/20/20 06:30 06/24/20 06:40 Omeprazole 20 Mg Capsule. PO 20 mg BID@3583,4153 STANLEY Administration Propranolol HCl 20 mg 06/20/20 09:00 06/24/20 09:32 Propranolol Hcl 20 Mg Tablet PO 20 mg BID STANLEY Administration Protocol Trazodone HCl 50 mg 06/20/20 21:00 06/23/20 20:37 Trazodone Hcl 50 Mg Tablet PO 50 mg BEDTIME STANLEY Administration Trazodone HCl 50 mg 06/21/20 14:54 Trazodone Hcl 50 Mg Tablet PO BEDTIME PRN Insomnia Allergies Allergies Allergy/AdvReac Type Severity Reaction Status Date / Time shellfish derived AdvReac Hives Verified 06/19/20 19:12 Assessment & Plan Assessment & Plan (1) Schizoaffective disorder, bipolar type: Status: Acute Code(s): F25.0 - Schizoaffective disorder, bipolar type Assessment and Plan: continue current medications- will d/c cogentin as although pt has essetial rest ing tremor, does not seen to be EPS from Latuda. Pt had OP consult with neurology and is already on propanolol. obtain collateral information (2) Intermittent explosive disorder: Status: Acute Code(s): F63.81 - Intermittent explosive disorder Assessment and Plan: continue current medications obtain collateral information (3) Intellectual disability: Status: Acute Code(s): F79 - Unspecified intellectual disabilities (4) UTI (urinary tract infection): Status: Acute Code(s): N39.0 - Urinary tract infection, site not specified Assessment and Plan: continue macrobid. Greater than 50% of the session was spent on counseling and/or coordination of care Reason for contiued inpatient stay Substantial Risk for: stable for discharge
[2020-06-24] MEDS: Lurasidone HCl 80 MG TABLET PO (16:01)
[2020-06-24 17:37] VITALS: BP 131/64; PULSE 81; RESP 16; TEMP 37; O2SAT 100
[2020-06-24] MEDS: traZODone HCL 50 MG TABLET PO (20:19)
[2020-06-24 20:20] VITALS: BP 131/64; PULSE 81
[2020-06-25] MEDS: Omeprazole 20 MG CAPSULE.DR PO ×2 (06:38→17:13)
[2020-06-25 06:54] VITALS: BP 126/69; PULSE 103; RESP 18; TEMP 36.4; O2SAT 97
[2020-06-25 09:14] VITALS: BP 125/69; PULSE 88
[2020-06-25] MEDS: lamoTRIgine 100 MG TABLET PO (09:14)
[2020-06-25] MEDS: Nitrofurantoin Monohyd/M-Cryst 100 MG CAPSULE PO ×2 (09:14→20:18)
[2020-06-25] MEDS: medroxyPROGESTERone Acetate 5 MG TABLET 10 MG PO (09:14)
[2020-06-25] MEDS: Propranolol HCL 20 MG TABLET PO ×2 (09:14→20:18)
[2020-06-25 17:10] VITALS: BP 118/60; PULSE 82; TEMP 36.4
[2020-06-25] MEDS: Lurasidone HCl 80 MG TABLET PO (17:13)
--- NOTE | 2020-06-25 19:51 | HO.PSYCHPN ---
Subjective Subjective Date of Service: 06/25/20 Reason For Visit: SI Subjective Notes: Conditional Voluntary Interim History: States she hopes to discharge next week. Denies complaints except for anxiety. Medication Compliance: Yes Side effects from medications: No Attending Groups: Yes Review of Systems Review of Systems Yes all other systems are reviewed and are negative Reports behavioral changes Psychiatric: Reports anxiety and Reports behavioral changes Mental Status Exam Mental Status Exam Patient Appearance: Appropriate Patient Orientation: Person, Place, Time and Situation Level of Consciousness: Alert Patient Behavior: Talkative Affect Description: Withdrawn and Flat Patient Cognition Impaired: No Ability to Follow Directions: Good Speech Pattern: Spontaneous Speech Memory Description: Intact Hallucinations: Auditory (at times) Delusions: Not Present Thought Process: Distracted Thought Content: positive for [place] and positive for Circumstantial Depressive Symptoms: Increased Anxiety Judgement: Fair Diagnostics Vital Signs (24Hr): Vital Signs - 24 hr 06/24/20 20:20 06/25/20 06:54 06/25/20 09:14 Temperature 97.6 F Pulse Rate 81 103 H 88 Respiratory Rate 18 Blood Pressure 131/64 126/69 125/69 Pulse Oximetry 97 06/25/20 17:10 Temperature 97.6 F Pulse Rate 82 Respiratory Rate Blood Pressure 118/60 Pulse Oximetry Body Mass Index 40.9 Labs Results: 06/19/20 19:34 06/19/20 19:34 Medications Medications Current Medications Generic Name Dose Route Start Last Admin Trade Name Freq PRN Reason Stop Dose Admin Acetaminophen 650 mg 06/19/20 23:56 Acetaminophen 325 Mg Tablet PO Q4H PRN Pain, Mild (Pain Scale 1-3) Al Hydroxide/Mg Hydroxide 30 ml 06/21/20 14:54 Magnesium Hydrox/Alum Hydrox 30 Ml Oral.Susp PO Q6H PRN Heartburn/Nausea Ibuprofen 800 mg 06/19/20 23:56 Ibuprofen 800 Mg Tablet PO Q6H PRN Pain, Moderate (Pain Scale 4-6 Lamotrigine 100 mg 06/20/20 09:00 06/25/20 09:14 Lamotrigine 100 Mg Tablet PO 100 mg DAILY STANLEY Administration Lurasidone HCl 80 mg 06/20/20 17:00 06/25/20 17:13 Lurasidone Hcl 80 Mg Tablet PO 80 mg DAILY@1700 ST[facility] Administration Magnesium Hydroxide 30 ml 06/21/20 14:54 Milk Of Magnesia 30 Ml Oral.Susp PO DAILY PRN Constipation Medroxyprogesterone Acetate 10 mg 06/20/20 09:00 06/25/20 09:14 Medroxyprogesterone Acetate 5 Mg Tablet PO 10 mg DAILY ST[facility]LEY Administration Nitrofurantoin Macrocrystals 100 mg 06/19/20 21:15 06/25/20 09:14 Nitrofurantoin Monohyd/M-Cryst 100 Mg Capsule PO 06/26/20 09:01 100 mg BID STANLEY Administration Omeprazole 20 mg 06/20/20 06:30 06/25/20 17:13 Omeprazole 20 Mg Capsule. PO 20 mg BID@5760,4790 STANLEY Administration Propranolol HCl 20 mg 06/20/20 09:00 06/25/20 09:14 Propranolol Hcl 20 Mg Tablet PO 20 mg BID STANLEY Administration Protocol Trazodone HCl 50 mg 06/20/20 21:00 06/24/20 20:19 Trazodone Hcl 50 Mg Tablet PO 50 mg BEDTIME STANLEY Administration Trazodone HCl 50 mg 06/21/20 14:54 Trazodone Hcl 50 Mg Tablet PO BEDTIME PRN Insomnia Allergies Allergies Allergy/AdvReac Type Severity Reaction Status Date / Time shellfish derived AdvReac Hives Verified 06/19/20 19:12 Assessment & Plan Assessment & Plan (1) Schizoaffective disorder, bipolar type: Status: Acute Code(s): F25.0 - Schizoaffective disorder, bipolar type Assessment and Plan: Pt reports some anxiety regarding potential discharge next week. She is well engaged with the team and milieu Denies issues of concern today Continue current regime (2) Intermittent explosive disorder: Status: Acute Code(s): F63.81 - Intermittent explosive disorder Assessment and Plan: continue current medications (3) Intellectual disability: Status: Acute Code(s): F79 - Unspecified intellectual disabilities (4) UTI (urinary tract infection): Status: Acute Code(s): N39.0 - Urinary tract infection, site not specified Assessment and Plan: continue macrobid. Greater than 50% of the session was spent on counseling and/or coordination of care Reason for contiued inpatient stay Substantial Risk for: harm to self, inability to function, rapid decompensation and med/psych decompensation
[2020-06-25 20:18] VITALS: BP 130/65; PULSE 82
[2020-06-25] MEDS: traZODone HCL 50 MG TABLET PO (20:20)
[2020-06-26 06:25] VITALS: BP 109/51; PULSE 82; RESP 16; TEMP 36.4; O2SAT 97
[2020-06-26] MEDS: Omeprazole 20 MG CAPSULE.DR PO ×2 (06:45→17:22)
[2020-06-26 09:48] VITALS: BP 111/64; PULSE 74
[2020-06-26] MEDS: lamoTRIgine 100 MG TABLET PO (09:48)
[2020-06-26] MEDS: Nitrofurantoin Monohyd/M-Cryst 100 MG CAPSULE PO (09:48)
[2020-06-26] MEDS: Propranolol HCL 20 MG TABLET PO ×2 (09:48→21:26)
[2020-06-26] MEDS: medroxyPROGESTERone Acetate 5 MG TABLET 10 MG PO (09:48)
[2020-06-26] MEDS: LORazepam 0.5 MG TABLET PO ×2 (14:11→21:26)
[2020-06-26] MEDS: LORazepam 1 MG TABLET PO (17:22)
--- NOTE | 2020-06-26 18:40 | P.PNPSI_ITS ---
Subjective Subjective Date of Service: 06/26/20 Reason For Visit: SI Subjective Notes: Conditional Voluntary Interim History: Reports UTI sx persist, constipation with bowel mvt both yesterday and today and abdominal cramping when she eats too fast and when she is overwhelmed. States she and mother want her to be diagnosed with schizophrenia as she hears voices and sees visions. At times, voices tell her to harm others. Medication Compliance: Yes Side effects from medications: No Attending Groups: Yes Review of Systems Gastrointestinal: Reports constipation Genitourinary: Reports other (uti sx) Reports behavioral changes Psychiatric: Reports anxiety, Reports behavioral changes and Reports paranoia Mental Status Exam Mental Status Exam Patient Appearance: Appropriate Patient Orientation: Person, Place, Time and Situation Level of Consciousness: Alert Patient Behavior: Talkative Mood Description: Constricted Affect Description: Constricted Patient Cognition Impaired: No Ability to Follow Directions: Good Speech Pattern: Spontaneous Speech Memory Description: Intact Hallucinations: Auditory and Visual Delusions: Paranoid Ideation Thought Process: Distracted Thought Content: positive for [place] and positive for Circumstantial Depressive Symptoms: Increased Anxiety Judgement: Fair Diagnostics Vital Signs (24Hr): Vital Signs - 24 hr 06/25/20 20:18 06/26/20 06:25 06/26/20 09:48 Temperature 97.6 F Pulse Rate 82 82 74 Respiratory Rate 16 Blood Pressure 130/65 109/51 L 111/64 Pulse Oximetry 97 Body Mass Index 40.9 Labs Results: 06/19/20 19:34 06/19/20 19:34 Medications Medications Current Medications Generic Name Dose Route Start Last Admin Trade Name Freq PRN Reason Stop Dose Admin Acetaminophen 650 mg 06/19/20 23:56 Acetaminophen 325 Mg Tablet PO Q4H PRN Pain, Mild (Pain Scale 1-3) Al Hydroxide/Mg Hydroxide 30 ml 06/21/20 14:54 Magnesium Hydrox/Alum Hydrox 30 Ml Oral.Susp PO Q6H PRN Heartburn/Nausea Ibuprofen 800 mg 06/19/20 23:56 Ibuprofen 800 Mg Tablet PO Q6H PRN Pain, Moderate (Pain Scale 4-6 Lamotrigine 100 mg 06/20/20 09:00 06/26/20 09:48 Lamotrigine 100 Mg Tablet PO 100 mg DAILY STANLEY Administration Lorazepam 0.5 mg 06/26/20 15:00 06/26/20 14:11 Lorazepam 0.5 Mg Tablet PO 0.5 mg TID STANLEY Administration Lorazepam 1 mg 06/26/20 16:57 06/26/20 17:22 Lorazepam 1 Mg Tablet PO 1 mg Q8H PRN Administration Anxiety Lurasidone HCl 100 mg 06/26/20 21:00 Lurasidone Hcl 20 Mg Tablet PO BEDTIME STANLEY Magnesium Hydroxide 30 ml 06/21/20 14:54 Milk Of Magnesia 30 Ml Oral.Susp PO DAILY PRN Constipation Medroxyprogesterone Acetate 10 mg 06/20/20 09:00 06/26/20 09:48 Medroxyprogesterone Acetate 5 Mg Tablet PO 10 mg DAILY ST[facility]LEY Administration Omeprazole 20 mg 06/20/20 06:30 06/26/20 17:22 Omeprazole 20 Mg Capsule. PO 20 mg BID@0630,3330 STANLEY Administration Propranolol HCl 20 mg 06/20/20 09:00 06/26/20 09:48 Propranolol Hcl 20 Mg Tablet PO 20 mg BID STANLEY Administration Protocol Trazodone HCl 50 mg 06/20/20 21:00 06/25/20 20:20 Trazodone Hcl 50 Mg Tablet PO 50 mg BEDTIME ST[facility]LEY Administration Trazodone HCl 50 mg 06/21/20 14:54 Trazodone Hcl 50 Mg Tablet PO BEDTIME PRN Insomnia Allergies Allergies Allergy/AdvReac Type Severity Reaction Status Date / Time shellfish derived AdvReac Hives Verified 06/19/20 19:12 Assessment & Plan Assessment & Plan (1) Schizoaffective disorder, bipolar type: Status: Acute Code(s): F25.0 - Schizoaffective disorder, bipolar type Assessment and Plan: Pt reports an increase in voices and visions Voices are telling her to harm o thers. Increase Latuda to 100 mg daily Ativan prn (2) Intermittent explosive disorder: Status: Acute Code(s): F63.81 - Intermittent explosive disorder Assessment and Plan: continue current medications (3) Intellectual disability: Status: Acute Code(s): F79 - Unspecified intellectual disabilities (4) UTI (urinary tract infection): Status: Acute Code(s): N39.0 - Urinary tract infection, site not specified Assessment and Plan: Macrobid completed. Pt reports sx persist. Urine culture. Greater than 50% of the session was spent on counseling and/or coordination of care Reason for contiued inpatient stay Substantial Risk for: harm to self, harm to others, inability to function, rapid decompensation and med/psych decompensation
[2020-06-26 21:25] VITALS: BP 129/64; PULSE 89; TEMP 31.6
[2020-06-26] MEDS: Lurasidone HCl 20 MG TABLET 100 MG PO (21:25)
[2020-06-26 21:26] VITALS: BP 129/64; PULSE 89
[2020-06-26] MEDS: traZODone HCL 50 MG TABLET PO (21:26)
[2020-06-27 06:00] VITALS: BP 111/63; PULSE 87; RESP 16; TEMP 36.1; O2SAT 98
[2020-06-27] MEDS: Omeprazole 20 MG CAPSULE.DR PO ×2 (06:36→16:53)
--- NOTE | 2020-06-27 06:37 | PC.NURSE ---
0635: pt reported command hallucinations that tell her to hurt herself. Denied plan and denied intent. Will seek staff if intent or plan emerges. Reported visual hallucination: I'm seeing all different colors of myself. Will continue to monitor and report.
[2020-06-27] MEDS: medroxyPROGESTERone Acetate 5 MG TABLET 10 MG PO (08:47)
[2020-06-27] MEDS: LORazepam 0.5 MG TABLET PO ×3 (08:47→21:23)
[2020-06-27] MEDS: lamoTRIgine 100 MG TABLET PO (08:47)
[2020-06-27 08:51] VITALS: BP 118/69; PULSE 95
[2020-06-27] MEDS: Propranolol HCL 20 MG TABLET PO ×2 (08:51→21:23)
[2020-06-27 21:15] VITALS: BP 120/79; PULSE 85; TEMP 36.1
[2020-06-27 21:23] VITALS: BP 120/79; PULSE 85
[2020-06-27] MEDS: Lurasidone HCl 20 MG TABLET 100 MG PO (21:23)
[2020-06-27] MEDS: traZODone HCL 50 MG TABLET PO (21:23)
--- NOTE | 2020-06-27 21:33 | P.PNPSI_ITS ---
Subjective Subjective Date of Service: 06/27/20 Reason For Visit: SI Subjective Notes: Conditional Voluntary Interim History: Anticipating discharge with anxiety, happiness, many questions and apprehension Med list emailed to in preparation for d/c Reports ongoing voices, command, VH-sees herself in colors. Latuda increase to 100 mg 06/26 which she is tolerating. Repeat UACS pending. Macrobid completed. Pt reported continued UTI sx. Medication Compliance: Yes Side effects from medications: No Attending Groups: Yes Review of Systems Review of Systems Yes all other systems are reviewed and are negative Reports behavioral changes Psychiatric: Reports anxiety, Reports behavioral changes, Reports auditory hallucinations, Reports mood swings and Reports suicidal ideation (denies SI plan or intent) Mental Status Exam Mental Status Exam Patient Appearance: Disheveled Patient Orientation: Person, Place, Time and Situation Level of Consciousness: Alert Patient Behavior: Talkative, Restless, Anxious, Distractible and Good Eye Contact Mood Description: Anxious and Apprehensive Affect Description: Apprehensive Patient Cognition Impaired: Yes Ability to Follow Directions: Good Speech Pattern: Spontaneous Speech Memory Description: Intact Hallucinations: Auditory and Visual Delusions: Not Present Thought Process: Distracted Thought Content: positive for [place], positive for Circumstantial and positive for Suicidal Ideation (denies) Depressive Symptoms: Increased Anxiety Abnormal Motor Activity Signs and Symptoms: Restlessness Judgement: Fair Diagnostics Vital Signs (24Hr): Vital Signs - 24 hr 06/27/20 06:00 06/27/20 08:51 06/27/20 18:00 Temperature 96.9 F 96.9 F Pulse Rate 87 95 85 Respiratory Rate 16 Blood Pressure 111/63 118/69 120/79 Pulse Oximetry 98 06/27/20 21:23 Temperature Pulse Rate 85 Respiratory Rate Blood Pressure 120/79 Pulse Oximetry Body Mass Index 40.9 Labs Results: 06/19/20 19:34 06/19/20 19:34 Medications Medications Current Medications Generic Name Dose Route Start Last Admin Trade Name Freq PRN Reason Stop Dose Admin Acetaminophen 650 mg 06/19/20 23:56 Acetaminophen 325 Mg Tablet PO Q4H PRN Pain, Mild (Pain Scale 1-3) Al Hydroxide/Mg Hydroxide 30 ml 06/21/20 14:54 Magnesium Hydrox/Alum Hydrox 30 Ml Oral.Susp PO Q6H PRN Heartburn/Nausea Ibuprofen 800 mg 06/19/20 23:56 Ibuprofen 800 Mg Tablet PO Q6H PRN Pain, Moderate (Pain Scale 4-6 Lamotrigine 100 mg 06/20/20 09:00 06/27/20 08:47 Lamotrigine 100 Mg Tablet PO 100 mg DAILY STANLEY Administration Lorazepam 0.5 mg 06/26/20 15:00 06/27/20 21:23 Lorazepam 0.5 Mg Tablet PO 0.5 mg TID STANLEY Administration Lorazepam 1 mg 06/26/20 16:57 06/26/20 17:22 Lorazepam 1 Mg Tablet PO 1 mg Q8H PRN Administration Anxiety Lurasidone HCl 100 mg 06/26/20 21:00 06/27/20 21:23 Lurasidone Hcl 20 Mg Tablet PO 100 mg BEDTIME STANLEY Administration Magnesium Hydroxide 30 ml 06/21/20 14:54 Milk Of Magnesia 30 Ml Oral.Susp PO DAILY PRN Constipation Medroxyprogesterone Acetate 10 mg 06/20/20 09:00 06/27/20 08:47 Medroxyprogesterone Acetate 5 Mg Tablet PO 10 mg DAILY STANLEY Administration Omeprazole 20 mg 06/20/20 06:30 06/27/20 16:53 Omeprazole 20 Mg Capsule.Dr PO 20 mg BID@3830,2720 STANLEY Administration Propranolol HCl 20 mg 06/20/20 09:00 06/27/20 21:23 Propranolol Hcl 20 Mg Tablet PO 20 mg BID STANLEY Administration Protocol Psyllium Hydrophilic Mucilloid 3.4 gm 06/26/20 18:49 Psyllium Seed 3.4 Gm Powd.Pack PO DAILY PRN Constipation Trazodone HCl 50 mg 06/20/20 21:00 06/27/20 21:23 Trazodone Hcl 50 Mg Tablet PO 50 mg BEDTIME STANLEY Administration Trazodone HCl 50 mg 06/21/20 14:54 Trazodone Hcl 50 Mg Tablet PO BEDTIME PRN Insomnia Allergies Allergies Allergy/AdvReac Type Severity Reaction Status Date / Time shellfish derived AdvReac Hives Verified 06/19/20 19:12 Assessment & Plan Assessment & Plan (1) Schizoaffective disorder, bipolar type: Status: Acute Code(s): F25.0 - Schizoaffective disorder, bipolar type Assessment and Plan: Pt reports an increase in voices and visions Voices are telling her to harm others. Increase of Latuda to 100 mg daily on 06/26 tolerated Ativan prn (2) Intermittent explosive disorder: Status: Acute Code(s): F63.81 - Intermittent explosive disorder Assessment and Plan: continue current medications (3) Intellectual disability: Status: Acute Code(s): F79 - Unspecified intellectual disabilities (4) UTI (urinary tract infection): Status: Acute Code(s): N39.0 - Urinary tract infection, site not specified Assessment and Plan: Macrobid completed. Pt reports sx persist. Urine culture pending. Pt has an appt with a new WATER SUPPLY ENGINEER in July 2020 for full eval. Greater than 50% of the session was spent on counseling and/or coordination of care Reason for contiued inpatient stay Substantial Risk for: harm to self, inability to function, rapid decompensation and med/psych decompensation
[2020-06-28 06:00] VITALS: BP 110/58; PULSE 80; TEMP 36.2
[2020-06-28] MEDS: Omeprazole 20 MG CAPSULE.DR PO ×2 (06:13→16:04)
[2020-06-28 09:24] VITALS: BP 120/65; PULSE 88
[2020-06-28] MEDS: medroxyPROGESTERone Acetate 5 MG TABLET 10 MG PO (09:24)
[2020-06-28] MEDS: Propranolol HCL 20 MG TABLET PO ×2 (09:24→20:17)
[2020-06-28] MEDS: LORazepam 0.5 MG TABLET PO ×3 (09:24→20:16)
[2020-06-28] MEDS: lamoTRIgine 100 MG TABLET PO (09:24)
--- NOTE | 2020-06-28 10:30 | P.PNPSI_ITS ---
Subjective Subjective Date of Service: 06/29/20 Reason For Visit: SI Interim History: pt anxious ruminating not aggressive states feels ok for discharge Medication Compliance: Yes Mental Status Exam Mental Status Exam Narrative: denies active aud hallucinations of command nature states feels safe for d/c Patient Appearance: Disheveled Patient Orientation: Person, Place, Time and Situation Level of Consciousness: Alert Patient Behavior: Talkative, Restless, Anxious, Distractible and Good Eye Contact Mood Description: Anxious and Apprehensive Affect Description: Apprehensive Patient Cognition Impaired: Yes Ability to Follow Directions: Good Speech Pattern: Spontaneous Speech Memory Description: Intact Hallucinations: Auditory and Visual Delusions: Not Present Thought Process: Distracted Thought Content: positive for [place] and positive for Circumstantial Depressive Symptoms: Increased Anxiety Abnormal Motor Activity Signs and Symptoms: Restlessness Judgement: Fair Diagnostics Vital Signs (24Hr): Vital Signs - 24 hr 06/27/20 21:15 06/27/20 21:23 06/28/20 06:00 Temperature 96.9 F 97.2 F Pulse Rate 85 85 80 Blood Pressure 120/79 120/79 110/58 L 06/28/20 09:24 Temperature Pulse Rate 88 Blood Pressure 120/65 Body Mass Index 40.9 Labs Results: 06/19/20 19:34 06/19/20 19:34 Medications Medications Current Medications Generic Name Dose Route Start Last Admin Trade Name Freq PRN Reason Stop Dose Admin Acetaminophen 650 mg 06/19/20 23:56 Acetaminophen 325 Mg Tablet PO Q4H PRN Pain, Mild (Pain Scale 1-3) Al Hydroxide/Mg Hydroxide 30 ml 06/21/20 14:54 Magnesium Hydrox/Alum Hydrox 30 Ml Oral.Susp PO Q6H PRN Heartburn/Nausea Ibuprofen 800 mg 06/19/20 23:56 Ibuprofen 800 Mg Tablet PO Q6H PRN Pain, Moderate (Pain Scale 4-6 Lamotrigine 100 mg 06/20/20 09:00 06/28/20 09:24 Lamotrigine 100 Mg Tablet PO 100 mg DAILY STANLEY Administration Lorazepam 0.5 mg 06/26/20 15:00 06/28/20 09:24 Lorazepam 0.5 Mg Tablet PO 0.5 mg TID STANLEY Administration Lorazepam 1 mg 06/26/20 16:57 06/26/20 17:22 Lorazepam 1 Mg Tablet PO 1 mg Q8H PRN Administration Anxiety Lurasidone HCl 100 mg 06/26/20 21:00 06/27/20 21:23 Lurasidone Hcl 20 Mg Tablet PO 100 mg BEDTIME STANLEY Administration Magnesium Hydroxide 30 ml 06/21/20 14:54 Milk Of Magnesia 30 Ml Oral.Susp PO DAILY PRN Constipation Medroxyprogesterone Acetate 10 mg 06/20/20 09:00 06/28/20 09:24 Medroxyprogesterone Acetate 5 Mg Tablet PO 10 mg DAILY STANLEY Administration Omeprazole 20 mg 06/20/20 06:30 06/28/20 06:13 Omeprazole 20 Mg Capsule. PO 20 mg BID@0630,7370 STANLEY Administration Propranolol HCl 20 mg 06/20/20 09:00 06/28/20 09:24 Propranolol Hcl 20 Mg Tablet PO 20 mg BID STANLEY Administration Protocol Psyllium Hydrophilic Mucilloid 3.4 gm 06/26/20 18:49 Psyllium Seed 3.4 Gm Powd.Pack PO DAILY PRN Constipation Trazodone HCl 50 mg 06/20/20 21:00 06/27/20 21:23 Trazodone Hcl 50 Mg Tablet PO 50 mg BEDTIME STANLEY Administration Trazodone HCl 50 mg 06/21/20 14:54 Trazodone Hcl 50 Mg Tablet PO BEDTIME PRN Insomnia Allergies Allergies Allergy/AdvReac Type Severity Reaction Status Date / Time shellfish derived AdvReac Hives Verified 06/19/20 19:12 Assessment & Plan Assessment & Plan (1) Schizoaffective disorder, bipolar type: Status: Acute Code(s): F25.0 - Schizoaffective disorder, bipolar type Assessment and Plan: continue latuda d/c planning Ativan prn (2) Intermittent explosive disorder: Status: Acute Code(s): F63.81 - Intermittent explosive disorder Assessment and Plan: continue current medications (3) Intellectual disability: Status: Acute Code(s): F79 - Unspecified intellectual disabilities (4) UTI (urinary tract infection): Status: Acute Code(s): N39.0 - Urinary tract infection, site not specified Assessment and Plan: Macrobid completed. Pt reports sx persist. Urine culture pending. Pt has an appt with a new ALL SOURCE INTELLIGENCE ANALYST in July 2020 for full eval. Greater than 50% of the session was spent on counseling and/or coordination of care Reason for contiued inpatient stay Substantial Risk for: harm to self and rapid decompensation
[2020-06-28] MEDS: Milk of Magnesia 30 ML ORAL.SUSP PO (16:09)
[2020-06-28 20:17] VITALS: BP 129/76; PULSE 95
[2020-06-28] MEDS: Lurasidone HCl 20 MG TABLET 100 MG PO (20:17)
[2020-06-28] MEDS: traZODone HCL 50 MG TABLET PO (20:17)
--- NOTE | 2020-06-28 20:44 | PC.NURSE ---
At approximately 20:30 Patient reports to this publicity writer she would like to be tested for diabetes and insulin resistance. When asked why, Shreya reports she has been very thirsty, having frequent urination, really bad headache, and is unable to empty bladder, additionally, she reports, I was dizzy outside. Shreya later reports her urine smells bad, it is painful to go, and she is experiencing incontinence as well. Labs were reviewed and she was found to have a Culture result on 06/27/20 of Group Strep B growth. Covering Paige. Shital Gunn was paged with symptoms and culture results. Awaiting next step instructions at this time.
[2020-06-28] MEDS: Ibuprofen 800 MG TABLET PO (20:56)
--- NOTE | 2020-06-28 21:12 | PC.NURSE ---
urine-a request was made for the hospitalist, Dr. Keith, to evaluate urine culture with results of strep b agalactiae. Pt continues to endorse burning upon urination, dribbling and feels as if she cannot empty her bladder.
--- NOTE | 2020-06-28 21:22 | PM.EVENT ---
Event Note Date of Service: 06/28/20 Event Note: Patient was being treated for UTI with Macrobid, urine culture now grew GBS. Will treat with amoxicillin as patient is still symptomatic.
[2020-06-28] MEDS: Amoxicillin 500 MG CAPSULE PO (21:44)
[2020-06-29 06:00] VITALS: BP 117/62; PULSE 91; RESP 18; TEMP 35.9; O2SAT 96
[2020-06-29] MEDS: Amoxicillin 500 MG CAPSULE PO ×3 (06:17→20:30)
[2020-06-29] MEDS: Omeprazole 20 MG CAPSULE.DR PO ×2 (06:17→16:20)
[2020-06-29] MEDS: LORazepam 0.5 MG TABLET PO ×3 (08:07→20:30)
[2020-06-29] MEDS: lamoTRIgine 100 MG TABLET PO (08:07)
[2020-06-29 08:08] VITALS: BP 120/64; PULSE 84
[2020-06-29] MEDS: Propranolol HCL 20 MG TABLET PO ×2 (08:08→20:31)
[2020-06-29] MEDS: medroxyPROGESTERone Acetate 5 MG TABLET 10 MG PO (08:08)
[2020-06-29 08:39] LABS: COVID-19 Test Negative (Negative)
--- NOTE | 2020-06-29 14:39 | P.PNPSI_ITS ---
Subjective Subjective Date of Service: 06/29/20 Reason For Visit: SI Subjective Notes: Conditional Voluntary Interim History: I do not want to be discharged. If I am discharged I will kill all of them, and Linda. Pt refusing discharge, threatening HI. States she has repeatedly asked over and over again to move with no result. Pt was crying, labile, threatening in our meeting-confrontive to headline writer. What are you going to do about it. Discussed with pt that we would cancel the discharge, reviewed the threats and what actions carried out in Homicidal intent would result in for her. Pt states this is why she asked for a diagnosis change to schizophrenia-to leave her fci. Reminded pt she had verbalized looking forward to discharge and she did not respond, except to cry. Met with Everardo MARCANO and shared a telephone call with warehouse stock clerk, Linda. Apparantly pt's mom has been giving pt possibly some mixed messages-telling OP team she is unable to care for pt and is burned out, then talking with pt daily, visiting, taking pt out and coaching on what to request/demand, along with giving pt misinformation. Meeting scheduled for 06/30 12pm with [facility] team, pt and Linda. Review of Systems Review of Systems Yes all other systems are reviewed and are negative Genitourinary: Reports other (UTI persists-amoxicillin initiated.) Reports behavioral changes Psychiatric: Reports abnormal sleep pattern, Reports anxiety, Reports behavioral changes, Reports depression, Reports difficulty concentrating, Reports auditory hallucinations, Reports hopelessness, Reports irritability, Reports anhedonia, Reports mood swings, Reports paranoia and Reports homicidal ideation Mental Status Exam Mental Status Exam Patient Appearance: Disheveled Patient Orientation: Person, Place and Situation Level of Consciousness: Alert Patient Behavior: Talkative, Cooperative, Aggressive, Verbal Threats, Anxious, Fearful, Fatigued, Distractible, Isolative and Good Eye Contact Mood Description: Withdrawn, Depressed, Hostile, Labile, Angry, Flat, Sad, Nervous and Apprehensive Affect Description: Labile Patient Cognition Impaired: Yes Ability to Follow Directions: Good Speech Pattern: Perseverating, Spontaneous Speech and Long Pauses Memory Description: Episodic Impaired Hallucinations: Auditory and Visual Delusions: Being Controlled and Present Thought Process: Illogical and Rumination Thought Content: positive for [place], positive for Circumstantial, positive for Goal Oriented and positive for Homicidal Ideation Depressive Symptoms: Diff. Making Decisions, Increased Irritability, Feelings of Worthlessness, Hopelessness, Feelings of Guilt, Unhappiness, Increased Fatigue, Low Self Esteem, Loss of Energy and Difficulty Concentrating Abnormal Motor Activity Signs and Symptoms: Restlessness Judgement: Poor Diagnostics Vital Signs (24Hr): Vital Signs - 24 hr 06/28/20 20:17 06/29/20 06:00 06/29/20 08:08 Temperature 96.7 F L Pulse Rate 95 91 84 Respiratory Rate 18 Blood Pressure 129/76 117/62 120/64 Pulse Oximetry 96 Body Mass Index 40.9 Labs Results: 06/19/20 19:34 06/19/20 19:34 Labs: Laboratory Results - last 48 hr 06/29/20 08:13 COVID-19 ([facility]ANCY) Negative COVID-19 Clin Com See Note Medications Medications Current Medications Generic Name Dose Route Start Last Admin Trade Name Freq PRN Reason Stop Dose Admin Acetaminophen 650 mg 06/19/20 23:56 Acetaminophen 325 Mg Tablet PO Q4H PRN Pain, Mild (Pain Scale 1-3) Al Hydroxide/Mg Hydroxide 30 ml 06/21/20 14:54 Magnesium Hydrox/Alum Hydrox 30 Ml Oral.Susp PO Q6H PRN Heartburn/Nausea Amoxicillin 500 mg 06/28/20 22:00 06/29/20 14:37 Amoxicillin 500 Mg Capsule PO 500 mg Q8H STANLEY Administration Ibuprofen 800 mg 06/19/20 23:56 06/28/20 20:56 Ibuprofen 800 Mg Tablet PO 800 mg Q6H PRN Administration Pain, Moderate (Pain Scale 4-6 Lamotrigine 100 mg 06/20/20 09:00 06/29/20 08:07 Lamotrigine 100 Mg Tablet PO 100 mg DAILY STANLEY Administration Lorazepam 0.5 mg 06/26/20 15:00 06/29/20 14:37 Lorazepam 0.5 Mg Tablet PO 0.5 mg TID STANLEY Administration Lorazepam 1 mg 06/26/20 16:57 06/26/20 17:22 Lorazepam 1 Mg Tablet PO 1 mg Q8H PRN Administration Anxiety Lurasidone HCl 100 mg 06/26/20 21:00 06/28/20 20:17 Lurasidone Hcl 20 Mg Tablet PO 100 mg BEDTIME STANLEY Administration Magnesium Hydroxide 30 ml 06/21/20 14:54 06/28/20 16:09 Milk Of Magnesia 30 Ml Oral.Susp PO 30 ml DAILY PRN Administration Constipation Medroxyprogesterone Acetate 10 mg 06/20/20 09:00 06/29/20 08:08 Medroxyprogesterone Acetate 5 Mg Tablet PO 10 mg DAILY STANLEY Administration Omeprazole 20 mg 06/20/20 06:30 06/29/20 06:17 Omeprazole 20 Mg Capsule. PO 20 mg BID@3903,5380 STANLEY Administration Propranolol HCl 20 mg 06/20/20 09:00 06/29/20 08:08 Propranolol Hcl 20 Mg Tablet PO 20 mg BID STANLEY Administration Protocol Psyllium Hydrophilic Mucilloid 3.4 gm 06/26/20 18:49 Psyllium Seed 3.4 Gm Powd.Pack PO DAILY PRN Constipation Trazodone HCl 50 mg 06/20/20 21:00 06/28/20 20:17 Trazodone Hcl 50 Mg Tablet PO 50 mg BEDTIME STANLEY Administration Trazodone HCl 50 mg 06/21/20 14:54 Trazodone Hcl 50 Mg Tablet PO BEDTIME PRN Insomnia Allergies Allergies Allergy/AdvReac Type Severity Reaction Status Date / Time shellfish derived AdvReac Hives Verified 06/19/20 19:12 Assessment & Plan Assessment & Plan (1) Schizoaffective disorder, bipolar type: Status: Acute Code(s): F25.0 - Schizoaffective disorder, bipolar type Assessment and Plan: continue latuda d/c planning Ativan prn (2) Intermittent explosive disorder: Status: Acute Code(s): F63.81 - Intermittent explosive disorder Assessment and Plan: continue current medications (3) Intellectual disability: Status: Acute Code(s): F79 - Unspecified intellectual disabilities Assessment and Plan: Team meeting with residential program 06/30 12pm to discuss pt's refusal to discharge and sudden HI. (4) UTI (urinary tract infection): Status: Acute Code(s): N39.0 - Urinary tract infection, site not specified Assessment and Plan: Macrobid completed. Urine culture Strep Group B. Amoxicillin initiated. Pt has an appt with a new TURNING MACHINE OPERATOR HELPER in July 2020 for full eval. Greater than 50% of the session was spent on counseling and/or coordination of care Reason for contiued inpatient stay Substantial Risk for: harm to self, harm to others, inability to function, rapid decompensation and med/psych decompensation
[2020-06-29] MEDS: Acetaminophen 325 MG TABLET 650 MG PO (16:19)
[2020-06-29 16:37] VITALS: BP 119/73; PULSE 80; RESP 18; TEMP 35.8; O2SAT 98
[2020-06-29 20:31] VITALS: BP 121/64; PULSE 89
[2020-06-29] MEDS: traZODone HCL 50 MG TABLET PO (20:31)
[2020-06-29] MEDS: Lurasidone HCl 20 MG TABLET 100 MG PO (21:47)
[2020-06-30 06:00] VITALS: BP 112/53; PULSE 82; RESP 16; TEMP 36.2; O2SAT 96
[2020-06-30] MEDS: Omeprazole 20 MG CAPSULE.DR PO ×2 (06:40→16:12)
[2020-06-30] MEDS: Amoxicillin 500 MG CAPSULE PO ×3 (06:40→20:15)
[2020-06-30 07:00] VITALS: BMI 40.5
[2020-06-30] MEDS: medroxyPROGESTERone Acetate 5 MG TABLET 10 MG PO (09:32)
[2020-06-30 09:33] VITALS: BP 111/67; PULSE 85
[2020-06-30] MEDS: LORazepam 0.5 MG TABLET PO ×3 (09:33→20:15)
[2020-06-30] MEDS: Propranolol HCL 20 MG TABLET PO ×2 (09:33→20:15)
[2020-06-30] MEDS: lamoTRIgine 100 MG TABLET PO (09:33)
[2020-06-30] MEDS: LORazepam 1 MG TABLET PO (12:13)
--- NOTE | 2020-06-30 16:20 | HO.PSYCHPN ---
Subjective Subjective Date of Service: 06/30/20 Reason For Visit: SI Subjective Notes: Conditional Voluntary Interim History: Team meeting today with pt, Leia Vieira of [facility] and Linda-parts sales manager of pt's senior care. Linda reviewed a new safety agreement with pt with specifics of communicating SI/HI to team, safe behaviors, taking medications as directed, discussing frustrations, and having 24-48 hours of safety prior to commuity outings Pt has a new daily Shreya's feelings diary to check in with how she is feeling upon awakening, 8:30 a.m. prior to program, 3:30pm upon arrival at home and 8pm along with an area to note if prns, coping skills used were helpful. Pt will keep these logs in a binder. New rules for visits with family were also reviewed. Parents will only be allowed to visit at [facility] every other week. COVID safety measures will be in place. Visits will be planned in advance with Linda, they will be in a designated common area. If unsafe sx present as a result of the visit the protocol will be looked at for revision. Pt will discharge on 07/01. She will see PCP via zoom and OP psychiatrist via zoom as well. Pt agreed to this plan, and states she is feeling better and ready to go home. Denies SI< Hi or intent to harm anyone. Medication Compliance: Yes Side effects from medications: No Attending Groups: Yes Review of Systems Genitourinary: Reports other Comments: UTI sx. Mental Status Exam Mental Status Exam Patient Appearance: Disheveled Patient Orientation: Person, Place and Situation Level of Consciousness: Alert Patient Behavior: Talkative Mood Description: Anxious Affect Description: Anxious Patient Cognition Impaired: Yes Ability to Follow Directions: Good Speech Pattern: Spontaneous Speech Memory Description: Intact Hallucinations: None Delusions: Not Present Thought Process: Intact and Distracted Thought Content: positive for Intact, positive for [place], positive for Circumstantial, positive for Suicidal Ideation (denies) and positive for Homicidal Ideation (denies) Depressive Symptoms: Increased Anxiety Judgement: Good Diagnostics Vital Signs (24Hr): Vital Signs - 24 hr 06/29/20 16:37 06/29/20 20:31 06/30/20 06:00 Temperature 96.5 F L 97.2 F Pulse Rate 80 89 82 Respiratory Rate 18 16 Blood Pressure 119/73 121/64 112/53 L Pulse Oximetry 98 96 06/30/20 09:33 Temperature Pulse Rate 85 Respiratory Rate Blood Pressure 111/67 Pulse Oximetry Body Mass Index 40.5 Labs Results: 06/19/20 19:34 06/19/20 19:34 Labs: Laboratory Results - last 48 hr 06/29/20 08:13 COVID-19 ([facility]ANCY) Negative COVID-19 Clin Com See Note Medications Medications Current Medications Generic Name Dose Route Start Last Admin Trade Name Freq PRN Reason Stop Dose Admin Acetaminophen 650 mg 06/19/20 23:56 06/29/20 16:19 Acetaminophen 325 Mg Tablet PO 650 mg Q4H PRN Administration Pain, Mild (Pain Scale 1-3) Al Hydroxide/Mg Hydroxide 30 ml 06/21/20 14:54 Magnesium Hydrox/Alum Hydrox 30 Ml Oral.Susp PO Q6H PRN Heartburn/Nausea Amoxicillin 500 mg 06/28/20 22:00 06/30/20 14:13 Amoxicillin 500 Mg Capsule PO 500 mg Q8H STANLEY Administration Ibuprofen 800 mg 06/19/20 23:56 06/28/20 20:56 Ibuprofen 800 Mg Tablet PO 800 mg Q6H PRN Administration Pain, Moderate (Pain Scale 4-6 Lamotrigine 100 mg 06/20/20 09:00 06/30/20 09:33 Lamotrigine 100 Mg Tablet PO 100 mg DAILY STANLEY Administration Lorazepam 0.5 mg 06/26/20 15:00 06/30/20 14:13 Lorazepam 0.5 Mg Tablet PO 0.5 mg TID STANLEY Administration Lorazepam 1 mg 06/26/20 16:57 06/30/20 12:13 Lorazepam 1 Mg Tablet PO 1 mg Q8H PRN Administration Anxiety Lurasidone HCl 100 mg 06/26/20 21:00 06/29/20 21:47 Lurasidone Hcl 20 Mg Tablet PO 100 mg BEDTIME STANLEY Administration Magnesium Hydroxide 30 ml 06/21/20 14:54 06/28/20 16:09 Milk Of Magnesia 30 Ml Oral.Susp PO 30 ml DAILY PRN Administration Constipation Medroxyprogesterone Acetate 10 mg 06/20/20 09:00 06/30/20 09:32 Medroxyprogesterone Acetate 5 Mg Tablet PO 10 mg DAILY STANLEY Administration Omeprazole 20 mg 06/20/20 06:30 06/30/20 16:12 Omeprazole 20 Mg Capsule. PO 20 mg BID@1286,9198 STANLEY Administration Propranolol HCl 20 mg 06/20/20 09:00 06/30/20 09:33 Propranolol Hcl 20 Mg Tablet PO 20 mg BID STANLEY Administration Protocol Psyllium Hydrophilic Mucilloid 3.4 gm 06/26/20 18:49 Psyllium Seed 3.4 Gm Powd.Pack PO DAILY PRN Constipation Trazodone HCl 50 mg 06/20/20 21:00 06/29/20 20:31 Trazodone Hcl 50 Mg Tablet PO 50 mg BEDTIME STANLEY Administration Trazodone HCl 50 mg 06/21/20 14:54 Trazodone Hcl 50 Mg Tablet PO BEDTIME PRN Insomnia Allergies Allergies Allergy/AdvReac Type Severity Reaction Status Date / Time shellfish derived AdvReac Hives Verified 06/19/20 19:12 Assessment & Plan Assessment & Plan (1) Schizoaffective disorder, bipolar type: Status: Acute Code(s): F25.0 - Schizoaffective disorder, bipolar type Assessment and Plan: continue latuda d/c planning Ativan prn (2) Intermittent explosive disorder: Status: Acute Code(s): F63.81 - Intermittent explosive disorder Assessment and Plan: continue current medications (3) Intellectual disability: Status: Acute Code(s): F79 - Unspecified intellectual disabilities Assessment and Plan: Discharge 07/01/20. (4) UTI (urinary tract infection): Status: Acute Code(s): N39.0 - Urinary tract infection, site not specified Assessment and Plan: Macrobid completed. Urine culture Strep Group B. Amoxicillin initiated for 10 days. Pt has an appt with a new REELING AND TUBING MACHINE OPERATOR in July 2020 for full eval. Greater than 50% of the session was spent on counseling and/or coordination of care Reason for contiued inpatient stay Substantial Risk for: harm to self, harm to others and rapid decompensation
[2020-06-30 18:00] VITALS: BP 125/60; PULSE 84; RESP 18; TEMP 36.3
[2020-06-30 20:15] VITALS: BP 125/60; PULSE 84
[2020-06-30] MEDS: traZODone HCL 50 MG TABLET PO (20:16)
[2020-06-30] MEDS: Lurasidone HCl 20 MG TABLET 100 MG PO (20:28)
[2020-06-30] MEDS: Acetaminophen 325 MG TABLET 650 MG PO (20:51)
[2020-07-01] MEDS: Omeprazole 20 MG CAPSULE.DR PO (06:43)
[2020-07-01] MEDS: Amoxicillin 500 MG CAPSULE PO (06:43)
[2020-07-01 09:29] VITALS: BP 113/64; PULSE 104
[2020-07-01] MEDS: medroxyPROGESTERone Acetate 5 MG TABLET 10 MG PO (09:29)
[2020-07-01] MEDS: LORazepam 0.5 MG TABLET PO (09:29)
[2020-07-01] MEDS: Propranolol HCL 20 MG TABLET PO (09:29)
[2020-07-01] MEDS: lamoTRIgine 100 MG TABLET PO (09:29)
[2020-07-01 09:58] LABS: COVID-19 Test Negative (Negative)
--- NOTE | 2020-07-01 13:41 | PM.PSYDC ---
DS: Providers Provider Date of Service: 07/01/20 Date of admission: 06/21/20 14:53 Date of discharge: 07/01/20 Primary care physician: Abdirahman Allen MD Admitting clinician: Sushma Gamino Attending physician on admission: Esvin Gupta Attending physician on discharge: Esvin Gupta Discharging clinician: Suzie Miranda DS: Diagnosis Discharge Diagnosis (1) Schizoaffective disorder, bipolar type: Status: Acute Problem details: 19 yo female brought to ER by her mother from her longterm with reports of visual and auditory perceptual alterations, SI with a plan to hang herself, HI toward her longterm staff and peer group. (2) Intermittent explosive disorder: Status: Acute (3) Intellectual disability: Status: Acute (4) UTI (urinary tract infection): Status: Resolved DS: Medications Discharge Medications Home Medications: Home Medications Medication Instructions Recorded Confirmed acetaminophen [Tylenol] 650 mg PO Q4H PRN 06/19/20 06/19/20 benztropine 1 mg PO BID 06/19/20 06/19/20 hydroxyzine pamoate [Vistaril] 50 mg PO BID 06/19/20 06/19/20 ibuprofen 800 mg PO Q6H PRN 06/19/20 06/19/20 lamotrigine [Lamictal] 100 mg PO QAM 06/19/20 06/19/20 medroxyprogesterone [Provera] 10 mg PO QAM 06/19/20 06/19/20 pantoprazole 20 mg PO DAILY 06/19/20 06/19/20 propranolol 20 mg PO BID 06/19/20 06/19/20 trazodone 50 mg PO BEDTIME 06/19/20 06/19/20 Previous Rx's Medication Instructions Recorded amoxicillin 500 mg PO Q8H 7 Days #21 cap 06/29/20 lorazepam 1 mg PO DAILY PRN 30 Days #30 tab 06/29/20 lorazepam [Ativan] 0.5 mg PO TID 30 Days #90 tab 06/29/20 lurasidone [Latuda] 40 mg PO DAILY #30 tab MDD 100 MG 06/29/20 lurasidone [Latuda] 60 mg PO DAILY #30 tab MDD 100 MG 06/29/20 amoxicillin 500 mg PO TID #30 cap 06/30/20 psyllium husk [Metamucil] 1 tbsp PO DAILY #660 g 06/30/20 Discharge Plan Discharge Anticipated Discharge Date/Time: 06/29/20 16:00 Patient Disposition: Home, Self-Care Discharge Diagnosis: Intellectual Disability Intermittent Explosive Disorder Schizoaffective Disorder, Bipolar type Referrals: RACHELLE HUYNH, PSYCHIATRIC PROVIDER [Other] - 07/12/20 8:00 am Abdirahman Allen MD [Primary Care Provider] - 07/05/20 2:15 pm (in office.) Discharge Medications: New lorazepam 1 mg Tablet 1 mg PO DAILY PRN (Reason: Anxiety) 30 Days Qty: 30 RF: 0 Latuda 60 mg tablet 60 mg PO DAILY MDD 100 MG Qty: 30 RF: 0 Latuda 40 mg tablet 40 mg PO DAILY MDD 100 MG Qty: 30 RF: 0 amoxicillin 500 mg Capsule 500 mg PO Q8H 7 Days Qty: 21 RF: 0 lorazepam [Ativan] 0.5 mg Tablet 0.5 mg PO TID 30 Days Qty: 90 RF: 0 Metamucil 3.4 gram/5.4 gram powder 1 tbsp PO DAILY Qty: 660 RF: 0 amoxicillin 500 mg capsule 500 mg PO TID Qty: 30 RF: 0 Continued medroxyprogesterone [Provera] 10 mg Tablet 10 mg PO QAM RF: 0 trazodone 50 mg Tablet 50 mg PO BEDTIME RF: 0 pantoprazole 20 mg Tablet,Delayed Release (Dr/Ec) 20 mg PO DAILY RF: 0 benztropine 1 mg Tablet 1 mg PO BID RF: 0 propranolol 20 mg Tablet 20 mg PO BID RF: 0 lamotrigine [Lamictal] 100 mg Tablet 100 mg PO QAM RF: 0 hydroxyzine pamoate [Vistaril] 50 mg Capsule 50 mg PO BID RF: 0 acetaminophen [Tylenol] 325 mg Tablet 650 mg PO Q4H PRN (Reason: Pain) RF: 0 ibuprofen 800 mg Tablet 800 mg PO Q6H PRN (Reason: Pain) RF: 0 Discontinued lorazepam [Ativan] 0.5 mg Tablet 0.5 mg PO TID RF: 0 Latuda 80 mg Tablet 80 mg PO QPM RF: 0 Discharge Orders: Discharge Order (Routine); Ordered 07/01/20 Ordered By: Suzie Miranda Diet: advance to usual diet Activity on Discharge: As tolerated Stand Alone Forms: Patient Portal Discharge page, Community Support Care Plan Goals: Mood Stabilization Health Concerns: Intellectual Disability Intermittent Explosive Disorder Schizoaffective Disorder, Bipolar Type Plan of Treatment: Take medications as directed Follow up with appointments as scheduled, both psychiatric and medical Assessment: Shreya has tolerated medication changes and has participated in the milieu to address symptoms. Patient Instructions: Propranolol (By mouth), Lorazepam (By mouth), Trazodone (By mouth), Lamotrigine (By mouth), Lurasidone (By mouth) Discharge Date/Time: 07/01/20 12:16 Mental Status Exam Mental Status Exam Patient Appearance: Appropriate Patient Orientation: Person, Place, Time and Situation Level of Consciousness: Alert Patient Behavior: Appropriate, Talkative, Cooperative and Good Eye Contact Mood Description: Calm Affect Description: Calm Patient Cognition Impaired: Yes Ability to Follow Directions: Good Speech Pattern: Spontaneous Speech Memory Description: Intact Hallucinations: None Delusions: Not Present Thought Process: Intact and Goal Oriented Thought Content: positive for Intact, positive for Goal Oriented, positive for Suicidal Ideation (denies) and positive for Homicidal Ideation (denies) Depressive Symptoms: Diff. Making Decisions Judgement: Good Data Data Completed and Pending Completed studies during hospitalization [Text1]: 06/29/20 07/01/20 08:13 09:34 COVID-19 ([facility]) Negative Negative COVID-19 Clin Com See Note See Note 06/27/20 Unknown Urine clean catch - Clean Catch Midstream Urine Culture - Final Strep agalactiae (Grp B) 06/19/20 20:10 Urine clean catch - Clean Catch Midstream Urine Culture - Final No growth. DS: Summary Hospital Course Hospital Course: Pt admitted on a conditional voluntary status. She discussed moving out of the family home for the first time in April 2020 and discussed how difficult it has been as she misses her parents and struggles with the transition to independence. She reported hearing voices, seeing her hand turn purple and having moments of crying, anger, wanting to harm herself and others. She was able to work with the milieu team to process these issues, Latuda was titrated from 80 mg daily to 100 mg daily, Benztropine was discontinued as pt has a essential resting tremor and uses Propranolol. Pt did have sx of constipation, residual UTI sx that were treated and she will follow up with a community provider after discharge. When discharge became near, pt did have a relapse, threatening to kill the residential team and peers again. This was managed by postponing the discharge for a day and having an in person meeting with her residential team where they were able to discuss new boundaries at the home to assist her in transition which she responded positively. Time spent discussing smoking cessation with patient: 3 to 10 minutes Status at Discharge Cognitive/behavioral status at discharge: alert, oriented. non suicidal, non homicidal, non psychotic. mood and affect are calm. Functional status at discharge: independent ambulation Overall status at discharge: patient is back to baseline Time Spent with Patient Time attestation: Total time spent providing and/or coordinating discharge services:60
== END 2020-07-01 12:16 | disposition home or self-care (01) | DRG 750 ==
LOC: HO.ED 23:25 → HO.PM5 06-21 15:27
PROVIDERS: Nurse Practitioner Primary Care; Admitting Provider Psychiatry & Neurology Psychiatry; Emergency Provider Emergency Medicine; PCP Pediatrics Adolescent Medicine; Visit Provider Clinical Nurse Specialist Psychiatric/Mental Health, Adult
DX: F25.0 Schizoaffective disorder, bipolar type (principal); R45.851 Suicidal ideations; R45.850 Homicidal ideations; F79 Unspecified intellectual disabilities; N39.0 Urinary tract infection, site not specified; B95.1 Streptococcus, group B, as the cause of diseases classified elsewhere; F63.81 Intermittent explosive disorder; Z20.822 Contact with and (suspected) exposure to COVID-19; Z79.899 Other long term (current) drug therapy
CPT/HCPCS: 36415; 80053; 80307; 80320; 81001; 81025; 85025; 87086; 87147; 87635; 99285

== ENCOUNTER 2021-09-06 19:54 | Emergency (ER) | payer OTHER, SELFPAY ==
[2021-09-06 20:09] VITALS: BP 127/73; PULSE 86; RESP 20; TEMP 36.4; O2SAT 96; BMI 33.5
[2021-09-06 20:27] LABS: MANUAL DIFF FLAG NO
[2021-09-06 20:29] LABS: Basophils Percent Auto 0.4 % (0-2); Eosinophils Absolute Auto 0.1 X10*3/uL (0.0-0.4); Eosinophils Percent Auto 0.6 % (0-4); Hematocrit 37.6 % (37.0-47.0); Hemoglobin 12.3 g/dl (12.0-16.0); Imm Gran Abs Auto 0.02 X10*3/uL (0.00-0.03); Imm Gran Pct Auto 0.2 % (0.0-0.4); Lymphocytes Absolute Auto 3.8 X10*3/uL (1.2-4.9); Lymphocytes Percent Auto 37.6 % (20-40); Mean Corpuscular HGB Conc 32.7 g/dl (31.0-35.0); Mean Corpuscular Hemoglobin 28.6 pg (27.0-33.0); Mean Corpuscular Volume 87.4 fL (80.0-98.0); Mean Platelet Volume 10.5 fL (9.4-12.3); Monocytes Absolute Auto 0.7 X10*3/uL (0.1-1.2); Neutrophils Absolute Auto 5.5 x10*3/uL (2.0-8.3); Neutrophils Percent Auto 54.2 % (45-73); Platelet Count 222 X10*3/uL (160-400); Red Cell Distribution Width 12.8 % (11.0-16.0); White Blood Count 10.1 X10*3/uL (4.8-10.8)
--- NOTE | 2021-09-06 20:32 | ED.PSYCH ---
HPI - Psych General Chief Complaint: Psychiatric Symptoms Stated Complaint: crisis eval bipolar,,? self harm Time Seen by Provider: 09/06/21 23:10 Source: patient Mode of arrival: ambulatory Limitations: no limitations History of Present Illness HPI Narrative: 20-year-old female presents to the emergency department, resides in a senior living, states that she is suicidal and homicidal. She wants to jump out of cars and punch people. She also reports to be hypersexual. She does not report any physical complaints at this time. Denies drug use. MD complaint: suicidal ideation, feels depressed, homicidal ideation and anxiety Onset (ago): hour(s) (Several hours) Duration: constant History of same: Yes Relieving factors: none Exacerbating factors: none Context: significant life stressor Associated psychiatric symptoms: depression, suicidal ideation and homicidal ideation Associated symptoms: denies other symptoms Treatments prior to arrival: none If self harm: admits thoughts of self harm Related Data Home Medications Medication Instructions Recorded Confirmed acetaminophen 325 mg tablet 650 mg PO Q4H PRN Pain 06/19/20 09/06/21 (Tylenol) ibuprofen 800 mg tablet 800 mg PO Q6H PRN Pain 06/19/20 09/06/21 lamotrigine 100 mg tablet 100 mg PO QAM 06/19/20 09/06/21 (Lamictal) medroxyprogesterone 10 mg tablet 10 mg PO QAM 06/19/20 09/06/21 (Provera) pantoprazole 20 mg tablet,delayed 20 mg PO BID 06/19/20 09/06/21 release propranolol 20 mg tablet 20 mg PO BID 06/19/20 09/06/21 trazodone 50 mg tablet 50 mg PO BEDTIME 06/19/20 09/06/21 Calcium Antacid 500 mg PO TID PRN Indigestion 09/06/21 09/06/21 hydrocortisone valerate 0.2 % 1 appl topical BID 09/06/21 09/06/21 topical cream lurasidone 60 mg tablet (Latuda) 120 mg PO BEDTIME 09/06/21 09/06/21 psyllium husk 3.4 gram/5.4 gram 1 tbsp PO DAILY PRN Constipation 09/06/21 09/06/21 oral powder (Metamucil) trazodone 50 mg tablet 50 mg PO BEDTIME PRN Insomnia 09/06/21 09/06/21 Previous Rx's Medication Instructions Recorded lorazepam 0.5 mg tablet (Ativan) 0.5 mg PO TID 30 days #90 tabs 06/29/20 lorazepam 1 mg tablet 1 mg PO DAILY PRN Anxiety 30 days 06/29/20 #30 tabs Allergies Allergy/AdvReac Type Severity Reaction Status Date / Time shellfish derived AdvReac Hives Verified 06/19/20 19:12 Review of Systems Review of Systems: Constitutional: No Fever, No Chills ENT/Mouth: No Ear Pain, No Hoarseness, No sore throat Eyes: No Eye Pain, No Swelling, No Redness, No Foreign Body Cardiovascular: No Chest Pain, No SOB Respiratory: No Cough, No Dyspnea Gastrointestinal: No Nausea, No Vomiting, No Diarrhea, No abdominal Pain Genitourinary: No Dysuria, No Hematuria Musculoskeletal: positive joint pain, No Myalgias, No Joint Swelling Skin: No Skin lacerations, No rash Neuro: No Weakness, No Numbness, No Paresthesias, No Loss of Consciousness, No Dizziness, No Headache Psych: No Anxiety/Panic, No Depression Heme/Lymph: no easy bruising, no Lymphadenopathy Endocrine: No Polyuria, No Polydipsia Yes all other systems are reviewed and are negative [facility] Past Medical History Attestation statement: The following information was validated with the patient. Source: old records reviewed Medical History Intellectual disability Mixed bipolar disorder Social History Social History Housing: Other Housing Other:: Residential Skilled Nursing Do you presently have visiting nurse or other home services: No Second Hand Smoke Exposure: No Advance Directives: No Advance Directives Information Provided: No service: No Sexual orientation: Don't Know Physical Exam Vital Signs: Vital Signs: Last Vital Signs Temp 97.6 F 09/06/21 20:09 Pulse 86 09/06/21 20:09 Resp 20 09/06/21 20:09 BP 127/73 09/06/21 20:09 Pulse Ox 96 09/06/21 20:09 O2 Del Method 09/06/21 20:09 BMI result Body Mass Index 33.5 Appearance: Alert. Oriented X3. No acute distress. Eyes: Pupils equal, round and reactive to light. ENT: Pharynx normal. Neck: Normal inspection. Neck supple. CVS: Normal heart rate and rhythm. Pulses normal. Respiratory: No respiratory distress. Breath sounds normal. Abdomen: Soft and nontender. Skin: Skin warm and dry. Normal skin color. Normal skin turgor. Extremities: No lower extremity edema. Gait well-balanced well coordinated. Neuro: No motor deficit. No sensory deficit. Cranial nerves 2-12 intact. Course Course Course Narrative: 20-year-old female presents for suicidal ideation, homicidal ideation, and hypersexual behavior. Patient states that she needs to take a cold shower at this time or have some aspirin. She also states have anxiety. Will give her 1 mg of Ativan and shower as requested. Patient does not report any medical complaints. She has had multiple presentations in the past for similar circumstances. Will order in consult. 23:00 plan of care to discharge home. The [facility] consult complete. Patient does have a history of behavioral presentation to the emergency department when she has problems at her senior living. [facility] feels that patient is at her baseline, and is able to be discharged home. Patient does have adequate follow-up with Psychiatry. Plan of care to discharge home. MDM - Psych Differential Diagnosis Differential diagnosis: Likely acute psychosis, homicidal ideation, suicidal ideation, depression and mood disorder Medical Records Attestation: I reviewed the patient's medical records. Lab Data Attestation: I reviewed the patient's lab results. Result diagrams: 09/06/21 20:18 09/06/21 20:18 Labs: Lab Results 09/06/21 09/06/21 09/06/21 Range/Units 20:18 20:18 20:18 WBC 10.1 (4.8-10.8) X10*3/uL RBC 4.30 (4.20-5.50) X10*6/uL Hgb 12.3 (12.0-16.0) g/dl Hct 37.6 (37.0-47.0) % MCV 87.4 (80.0-98.0) fL MCH 28.6 (27.0-33.0) pg MCHC 32.7 (31.0-35.0) g/dl RDW 12.8 (11.0-16.0) % Plt Count 222 (160-400) X10*3/uL MPV 10.5 (9.4-12.3) fL Immature Gran % (Auto) 0.2 (0.0-0.4) % Neut % (Auto) 54.2 (45-73) % Lymph % (Auto) 37.6 (20-40) % Bacon % (Auto) 7.0 (2-11) % Eos % (Auto) 0.6 (0-4) % Baso % (Auto) 0.4 (0-2) % Lymph # (Auto) 3.8 (1.2-4.9) X10*3/uL Bacon # (Auto) 0.7 (0.1-1.2) X10*3/uL Eos # (Auto) 0.1 (0.0-0.4) X10*3/uL Baso # (Auto) 0.0 (0.0-0.2) X10*3/uL Abs Immat Gran (auto) 0.02 (0.00-0.03) X10*3/uL Absolute Neuts (auto) 5.5 (2.0-8.3) x10*3/uL Absolute Nucleated RBC 0.000 (0.0-0.012) X10*3/uL Nucleated RBC % (auto) 0.0 (0.0-0.2) /100WBC Sodium 142 (135-145) mmol/L Potassium 4.2 (3.3-5.1) mmol/L Chloride 110 H (96-108) mmol/L Carbon Dioxide 24 (22-29) mmol/L Anion Gap 12 (12-20) BUN 11 (9-16) mg/dL Creatinine 0.89 (0.5-1.4) mg/dL Estim Creat Clear Calc 116.4 Estimated GFR > 60 Random Glucose 112 (60-115) mg/dL Calcium 9.2 (8.4-10.2) mg/dL Total Bilirubin 0.7 (0.0-1.0) mg/dL AST 10 (5-31) U/L ALT 10 (0-31) U/L Alkaline Phosphatase 83 D (39-117) U/L Total Protein 7.3 (6.5-8.0) g/dL Albumin 4.4 (3.5-5.0) g/dL Urine Color Urine Appearance Urine pH (5.0-8.0) Ur Specific [place] (1.005-1.025) Urine Protein (NEG-TRACE) MG/DL Urine Glucose (UA) (NEG) MG/DL Urine Ketones (NEG) MG/DL Urine Blood (NEG) Urine Nitrite (NEG) Ur Leukocyte Esterase (NEG) Urine RBC (0) /HPF Urine WBC (0-4) /HPF Ur Squamous Epith Cells /LPF Urine Bacteria /LPF Urine Test (NEGATIVE) Urine Opiates Screen (Not Detect) Urine Fentanyl Screen (Not Detect) Ur Barbiturates Screen (Not Detect) Ur Phencyclidine Scrn (Not Detect) Ur Amphetamines Screen (Not Detect) Urine Cocaine Screen (Not Detect) U Marijuana (THC) Screen (Not Detect) Ethyl Alcohol < 10 mg/dL COVID-19 (FRANCY) Negative (Negative) COVID-19 Clin Com See Note 09/06/21 09/06/21 09/06/21 Range/Units 21:03 21:03 21:03 WBC (4.8-10.8) X10*3/uL RBC (4.20-5.50) X10*6/uL Hgb (12.0-16.0) g/dl Hct (37.0-47.0) % MCV (80.0-98.0) fL MCH (27.0-33.0) pg MCHC (31.0-35.0) g/dl RDW (11.0-16.0) % Plt Count (160-400) X10*3/uL MPV (9.4-12.3) fL Immature Gran % (Auto) (0.0-0.4) % Neut % (Auto) (45-73) % Lymph % (Auto) (20-40) % Bacon % (Auto) (2-11) % Eos % (Auto) (0-4) % Baso % (Auto) (0-2) % Lymph # (Auto) (1.2-4.9) X10*3/uL Bacon # (Auto) (0.1-1.2) X10*3/uL Eos # (Auto) (0.0-0.4) X10*3/uL Baso # (Auto) (0.0-0.2) X10*3/uL Abs Immat Gran (auto) (0.00-0.03) X10*3/uL Absolute Neuts (auto) (2.0-8.3) x10*3/uL Absolute Nucleated RBC (0.0-0.012) X10*3/uL Nucleated RBC % (auto) (0.0-0.2) /100WBC Sodium (135-145) mmol/L Potassium (3.3-5.1) mmol/L Chloride (96-108) mmol/L Carbon Dioxide (22-29) mmol/L Anion Gap (12-20) BUN (9-16) mg/dL Creatinine (0.5-1.4) mg/dL Estim Creat Clear Calc Estimated GFR Random Glucose (60-115) mg/dL Calcium (8.4-10.2) mg/dL Total Bilirubin (0.0-1.0) mg/dL AST (5-31) U/L ALT (0-31) U/L Alkaline Phosphatase (39-117) U/L Total Protein (6.5-8.0) g/dL Albumin (3.5-5.0) g/dL Urine Color YELLOW Urine Appearance CLEAR Urine pH 6.0 (5.0-8.0) Ur Specific [place] <= 1.005 (1.005-1.025) Urine Protein NEG (NEG-TRACE) MG/DL Urine Glucose (UA) NEG (NEG) MG/DL Urine Ketones NEG (NEG) MG/DL Urine Blood NEG (NEG) Urine Nitrite NEG (NEG) Ur Leukocyte Esterase 2+ H (NEG) Urine RBC 1-4 (0) /HPF Urine WBC 1-4 (0-4) /HPF Ur Squamous Epith Cells TRACE /LPF Urine Bacteria 1+ /LPF Urine Test NEGATIVE (NEGATIVE) Urine Opiates Screen Not Detected (Not Detect) Urine Fentanyl Screen Not Detected (Not Detect) Ur Barbiturates Screen Not Detected (Not Detect) Ur Phencyclidine Scrn Not Detected (Not Detect) Ur Amphetamines Screen Not Detected (Not Detect) Urine Cocaine Screen Not Detected (Not Detect) U Marijuana (THC) Screen Not Detected (Not Detect) Ethyl Alcohol mg/dL COVID-19 (FRANCY) (Negative) COVID-19 Clin Com Discharge Plan Discharge Clinical Impression: Intellectual disability, Intermittent explosive disorder Patient Disposition: Home, Self-Care Instructions: Conduct Disorder (ED) Additional Instructions: Please follow-up with outpatient psychiatry as scheduled. Thank you for choosing this emergency department for evaluation. Please follow-up with primary care physician as needed. Return to the emergency department for any new, concerning, or worsening symptoms. Prescriptions: No Action medroxyprogesterone [Provera] 10 mg Tablet 10 mg PO QAM trazodone 50 mg Tablet 50 mg PO BEDTIME pantoprazole 20 mg Tablet,Delayed Release (Dr/Ec) 20 mg PO BID Rx Instructions: before breakfast and supper propranolol 20 mg Tablet 20 mg PO BID lamotrigine [Lamictal] 100 mg Tablet 100 mg PO QAM acetaminophen [Tylenol] 325 mg Tablet 650 mg PO Q4H PRN (Reason: Pain) ibuprofen 800 mg Tablet 800 mg PO Q6H PRN (Reason: Pain) lorazepam 1 mg Tablet 1 mg PO DAILY PRN (Reason: Anxiety) 30 Days Qty: 30 0RF lorazepam [Ativan] 0.5 mg Tablet 0.5 mg PO TID 30 Days Qty: 90 0RF Rx Instructions: MAX DOSE DAILY 2.5 MG Latuda 60 mg tablet 120 mg PO BEDTIME MDD 100 MG Rx Instructions: must administer with food (at least 350 calories) TAKE WITH 40 MG LURASIDONE trazodone 50 mg Tablet 50 mg PO BEDTIME PRN (Reason: Insomnia) Metamucil 3.4 gram/5.4 gram powder 1 tbsp PO DAILY PRN (Reason: Constipation) Rx Instructions: mix into at least 8 oz of water or juice before administering hydrocortisone valerate 0.2 % Cream 1 appl TOPICAL BID Calcium Antacid 500 mg PO TID PRN (Reason: Indigestion)
[2021-09-06 20:44] LABS: Alanine Aminotransferase 10 U/L (0-31); Albumin Level 4.4 g/dL (3.5-5.0); Alkaline Phosphatase 83 U/L (39-117); Anion Gap 12 (12-20); Aspartate Amino Transferase 10 U/L (5-31); Bilirubin Total 0.7 mg/dL (0.0-1.0); Blood Urea Nitrogen 11 mg/dL (9-16); Calcium 9.2 mg/dL (8.4-10.2); Carbon Dioxide 24 mmol/L (22-29); Chloride 110 mmol/L (96-108); Creatinine Clr Calc Pharmacy 116.4; Estimated Glomerular Filt Rate > 60; Ethanol < 10 mg/dL; Glucose Random 112 mg/dL (60-115); Potassium 4.2 mmol/L (3.3-5.1); Sodium 142 mmol/L (135-145); Total Protein 7.3 g/dL (6.5-8.0)
[2021-09-06 20:48] LABS: COVID-19 Test Negative (Negative)
[2021-09-06 21:17] LABS: UPreg QC Valid YES; Urine Pregnancy NEGATIVE (NEGATIVE)
[2021-09-06 21:30] LABS: Fentanyl, urine Not Detected (Not Detect)
[2021-09-06 21:33] LABS: Amphetamine Screen Urine Not Detected (Not Detect); Barbiturates, Urine Not Detected (Not Detect); Cannabinoid Screen Urine Not Detected (Not Detect); Cocaine Screen Urine Not Detected (Not Detect); Opiate Screen Urine Not Detected (Not Detect); Phencyclidine Screen Urine Not Detected (Not Detect)
[2021-09-06] MEDS: LORazepam 1 MG TABLET PO (21:33)
[2021-09-06 22:29] LABS: Appearance Urine CLEAR; Color Urine YELLOW; Glucose Urine UA NEG (NEG); Leukocyte Esterase Urine 2+ (NEG); Nitrite Urine NEG (NEG); Specific Gravity - Urine <= 1.005 (1.005-1.025); Urine Blood NEG (NEG); Urine Ketones NEG (NEG); Urine Protein NEG (NEG-TRACE)
[2021-09-06 22:59] LABS: Bacteria Urine 1+ /LPF; Squamous Epithelial Cell Urine TRACE /LPF
--- NOTE | 2021-09-07 06:39 | PC.NURSE ---
Patient slept through the night, no distress observed/reported, Administered Ativan 1 mg at HS with good effect, patient engaged well with [facility], disposition current provider, [facility] will come pick her up at 0900 today, med rec completed/pending provider's approval, behavior appropriate, will continue to monitor.
--- NOTE | 2021-09-07 07:09 | PC.NURSE ---
patient appears to remain asleep at present respirations are even and unlabored patient appears in no distress
[2021-09-07] MEDS: Acetaminophen 325 MG TABLET 650 MG PO (08:09)
[2021-09-07] MEDS: LORazepam 0.5 MG TABLET PO (09:48)
[2021-09-07] MEDS: lamoTRIgine 100 MG TABLET PO (09:48)
[2021-09-07] MEDS: Propranolol HCL 20 MG TABLET PO (09:48)
[2021-09-07 10:47] LABS: Benzodiazepines Screen Urine NOT DETECTED (Not Detect)
== END 2021-09-07 09:56 | disposition home or self-care (01) ==
PROVIDERS: Nurse Practitioner Family; Emergency Provider Emergency Medicine; PCP Nurse Practitioner Family
DX: F63.81 Intermittent explosive disorder (principal); F79 Unspecified intellectual disabilities; Z20.822 Contact with and (suspected) exposure to COVID-19; R45.851 Suicidal ideations; R45.850 Homicidal ideations; F41.9 Anxiety disorder, unspecified; F25.0 Schizoaffective disorder, bipolar type; Z79.899 Other long term (current) drug therapy
CPT/HCPCS: 80053; 80307; 81001; 81025; 82077; 85025; 87635; 99284; 99285

== ENCOUNTER 2022-09-19 09:12 | Outpatient (REF) | payer OTHER, SELFPAY ==
[2022-09-19 12:02] LABS: Estimated Average Glucose 94 mg/dL; Hemoglobin A1c % 4.9 %
[2022-09-19 12:28] LABS: Alanine Aminotransferase 13 U/L (0-31); Albumin Level 4.2 g/dL (3.5-5.0); Alkaline Phosphatase 87 U/L (39-117); Anion Gap 13 (12-20); Aspartate Amino Transferase 12 U/L (5-31); Bilirubin Total 1.3 mg/dL (0.0-1.0); Blood Urea Nitrogen 10 mg/dL (9-16); Calcium 9.6 mg/dL (8.4-10.2); Carbon Dioxide 22 mmol/L (22-29); Chloride 106 mmol/L (96-108); Cholesterol 158 mg/dL; Estimated Glomerular Filt Rate > 60; Glucose Random 93 mg/dL (60-115); HDL Cholesterol 37 mg/dL; LDL Cholesterol Calculated 105 mg/dl; Potassium 4.1 mmol/L (3.3-5.1); Sodium 137 mmol/L (135-145); Total Protein 7.1 g/dL (6.5-8.0); Triglycerides 84 mg/dL
== END 2022-09-19 09:13 | disposition home or self-care (01) ==
LOC: HO.WFDLDS 09:12
PROVIDERS: PCP Internal Medicine; Visit Provider Registered Nurse
DX: F25.0 Schizoaffective disorder, bipolar type (principal)
CPT/HCPCS: 36415; 80053; 80061; 83036

== ENCOUNTER 2023-10-17 10:48 | Outpatient (REF) | payer OTHER, SELFPAY ==
[2023-10-17 14:32] LABS: MANUAL DIFF FLAG NO
[2023-10-17 14:35] LABS: Basophils Percent Auto 0.3 % (0-2); Eosinophils Absolute Auto 0.1 X10*3/uL (0.0-0.4); Eosinophils Percent Auto 0.8 % (0-4); Hemoglobin 13.2 g/dl (12.0-16.0); Imm Gran Abs Auto 0.01 X10*3/uL (0.00-0.03); Imm Gran Pct Auto 0.1 % (0.0-0.4); Lymphocytes Absolute Auto 2.6 X10*3/uL (1.2-4.9); Lymphocytes Percent Auto 35.3 % (20-40); Mean Corpuscular HGB Conc 33.8 g/dl (31.0-35.0); Mean Corpuscular Hemoglobin 29.7 pg (27.0-33.0); Mean Corpuscular Volume 87.8 fL (80.0-98.0); Mean Platelet Volume 10.3 fL (9.4-12.3); Monocytes Absolute Auto 0.5 X10*3/uL (0.1-1.2); Monocytes Percent Auto 6.9 % (2-11); Neutrophils Absolute Auto 4.2 x10*3/uL (2.0-8.3); Neutrophils Percent Auto 56.6 % (45-73); Platelet Count 227 X10*3/uL (160-400); Red Blood Count 4.44 X10*6/uL (4.20-5.50); Red Cell Distribution Width 12.6 % (11.0-16.0); White Blood Count 7.3 X10*3/uL (4.8-10.8)
[2023-10-17 14:52] LABS: Alanine Aminotransferase 13 U/L (0-31); Albumin Level 4.2 g/dL (3.5-5.0); Alkaline Phosphatase 94 U/L (39-117); Anion Gap 11 (12-20); Aspartate Amino Transferase 13 U/L (5-31); Bilirubin Total 0.5 mg/dL (0.0-1.0); Blood Urea Nitrogen 12 mg/dL (9-16); Calcium 9.8 mg/dL (8.4-10.2); Carbon Dioxide 23 mmol/L (22-29); Chloride 109 mmol/L (96-108); Cholesterol 152 mg/dL (<200); Estimated Glomerular Filt Rate > 60; Glucose Random 88 mg/dL (60-115); HDL Cholesterol 32 mg/dL (>40); LDL Cholesterol Calculated 89 mg/dL (<100); Potassium 3.8 mmol/L (3.3-5.1); Sodium 139 mmol/L (135-145); Total Protein 7.1 g/dL (6.5-8.0); Triglycerides 158 mg/dL (<150)
[2023-10-17 14:56] LABS: Estimated Average Glucose 103 mg/dL; Hemoglobin A1c % 5.2 % (<6.0)
== END 2023-10-17 10:49 | disposition home or self-care (01) ==
LOC: HO.WFDLDS 10:48
PROVIDERS: Visit Provider Psychiatry & Neurology Psychiatry
DX: F39 Unspecified mood [affective] disorder (principal); Z79.899 Other long term (current) drug therapy
CPT/HCPCS: 36415; 80053; 80061; 83036; 85025